=== PATIENT | male | born 1955 | race Caucasian/White ===

== ENCOUNTER 2019-08-28 12:22 | Outpatient (CLI) | payer BC, SELFPAY ==
--- NOTE | 2019-08-28 12:39 | ECG_ITS ---
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 EKG showed normal sinus rhythm with frequent PVCs, right axis deviation with mild ST depression. The patient exercised for 4 minutes 10 seconds on a standard Arnulfo protocol. Patient attained a maximum heart rate of 115 beats per minute(73 % of the maximum predicted heart rate) with a blood pressure at the peak exercise of 212/72 mm Hg and oxygen saturation 95%. The EKG at the peak exercise revealed this tachycardia with no significant ST changes. Study interpretation limited by baseline artifact. Patient did not have any chest pain or any significant shortness of breath with the exercise. Frequent PVCs were noted during exercise. Study was terminated due to fatigue and right hip pain. During the recovery phase, there were no new changes. Frequent PVCs in bigeminal pattern, PVC couplets and triplets were noted during recovery Blood pressure at the end of the recovery phase was 173/79 mm Hg with a heart rate of 71 beats per minute and oxygen saturation 98%. CONCLUSION: 1. Normal EKG response to submaximal stress on treadmill exercise patient reached 73% of maximum predicted heart rate. 2. No exercise-induced chest pain. Frequent PVCs noted at rest with frequent PVCs in bigeminal pattern, PVC couplet and triplet with peak exercise and recovery. 3. Decreased exercise tolerance, attained a maximum of 7 METs. Maximum VO2 of 24.5 mL/kg/min. 4. Baseline hypertension with hypertensive response to exercise. 5. Chemical stress testing is recommended. Electronically Signed On 08-30-2019 9:33:38 CDT by Kaitlin Brock M.D. [id number]
[2019-08-28 12:42] VITALS: BMI 35.9
[2019-08-28 13:29] VITALS: BP 132/74; PULSE 61
== END 2019-08-28 12:23 | disposition home or self-care (01) ==
PROVIDERS: PCP Nurse Practitioner; Visit Provider Internal Medicine Cardiovascular Disease
DX: I25.10 Atherosclerotic heart disease of native coronary artery without angina pectoris (principal)
CPT/HCPCS: 93017

== ENCOUNTER 2019-09-12 06:56 | Outpatient (CLI) | payer BC, SELFPAY ==
--- NOTE | 2019-09-12 07:19 | ECG_ITS ---
NAME OF STUDY: LEXISCAN SESTAMIBI STRESS TEST INDICATION: Chest Pain PROCEDURE: At the baseline, the blood pressure was 136/77 mmHg, oxygen saturation 97% with a heart rate of 50 bpm. The electrocardiogram showed sinus bradycardia, normal axis and nonspecific ST depression in lead II, III and aVF. The Lexiscan was infused over a period of 20 seconds. A total of 0.4 milligrams of Lexiscan was infused. The stress phase was continued for a total of 5 minutes. Heart rate at the end of the stress phase was 34 bpm, oxygen saturation 96% with a blood pressure of 102/76 mm Hg. The EKG at the peak infusion revealed junctional rhythm at 34 bpm with normal axis and nonspecific ST depression in lead II, III and aVF. No ischemic ST-T wave changes. Patient developed intraprocedural bradycardia, dizziness, diaphoresis and hypotension early in recovery with blood pressure dropping down to 64/39 mmHg and heart rate in 30's. Sestamibi was injected 20 seconds after the Lexiscan infusion. Blood pressure at the end of the recovery phase was 126/64 mmHg with a heart rate of 58 beats per minute. He received aminophylline 25 mg IV and 250 ml fluid bolus. CONCLUSION: 1. No significant EKG changes with LexiScan infusion. 2. No LexiScan induced chest pain. Junctional rhythm noted during stress. 3. Patient developed hypotension and junctional bradycardia during stress test. 4. Sestamibi/sestamibi perfusion scan pending; see separate report. Electronically Signed On 09-15-2019 14:03:54 CDT by Kaitlin Brock M.D. [id number]
--- NOTE | 2019-09-12 07:19 | NMCV_ITS ---
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 Images obtained in supine and prone position. SPECT RESULTS Technical Quality: Good Raw Data Analysis: Normal Image Corrections: No attenuation or motion correction applied Summed Stress Score: 5 Summed Rest Score: 3 Summed Difference Score: 3 PERFUSION FINDINGS Small size perfusion abnormality of mild severity of apical inferior and apical moran on rest images with ischemia noted in mid to apical inferolateral and apical inferior moran on stress images. FUNCTIONAL RESULTS (calculated via Gated SPECT) Stress Image LV EF (%): 44 Stress EDV (mL):117 TID: 0.92 Stress ESV (mL):65 FUNCTIONAL FINDINGS: The left ventricle is normal in size. Transient Ischemia Dilatation of 0.92. There is mildly reduced left ventricular systolic function. The left ventricular ejection fraction is reduced with a value of 44%. There is mild global hypokinesis. IMPRESSIONS 1. Small sized reversible perfusion abnormality of mid to apical inferolateral and apical inferior moran. This is suggestive of small area of ischemia in circumflex artery territory. 2. The left ventricular ejection fraction is reduced with a value of 44%. 3. There is mild global hypokinesis. 4. Electrocardiographic portion of the study will be reported separately. Kaitlin Brock MD Edited by: CV Manager Business Intelligence (Electronically Signed) Final Date: 15 September 2019 14:14 Amended: 16 September 2019 13:06 C
[2019-09-12 07:20] VITALS: BMI 36.6
[2019-09-12] MEDS: regadenoson 0.4 Mg/5 ml Syringe IVP (08:54)
[2019-09-12 08:56] VITALS: BP 164/87; PULSE 50
[2019-09-12] MEDS: aminophylline 25 mg/mL SDV 10 mL IVP (08:56)
[2019-09-12] MEDS: sodium chloride 0.9% 250 ML IV (09:15)
== END 2019-09-12 06:57 | disposition home or self-care (01) ==
PROVIDERS: PCP Nurse Practitioner; Visit Provider Internal Medicine Cardiovascular Disease
DX: R07.9 Chest pain, unspecified (principal); I25.10 Atherosclerotic heart disease of native coronary artery without angina pectoris
CPT/HCPCS: 78452; 93017; 96374; A9500; J0280; J2785; J7050

== ENCOUNTER 2019-09-18 09:46 | Observation (INO) | payer BC, SELFPAY ==
[2019-09-17 10:55] VITALS: BMI 36.3
[2019-09-18] VITALS (41 sets, daily range): BP systolic 108–159; BP diastolic 68–87; PULSE 49–67; RESP 7–23; TEMP 36.2–36.8; O2SAT 94–100
--- NOTE | 2019-09-18 07:30 | XACV_ITS ---
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 Stress testing showed a small amount of ischemia. Recommended for coronary angiography. The left main coronary artery contains a 50% eccentric ostial stenosis. The LAD is occluded at its origin. Distal flow is via the RENÉ graft. The circumflex marginal branches are occluded. There is an AV groove branch which gives off 2 tiny marginals distally and left atrial recurrent branch. The more proximal marginals are occluded. The right coronary artery is severely diffusely diseased in its proximal portion and then is occluded in the midportion. Some collaterals are seen from the distal LAD upon injection of the RENÉ graft. Conclusions 50% left main stenosis. Occluded marginal branches with patent AV groove branch of the circumflex. Occluded right and occluded LAD. Saphenous vein graft to the circumflex and right coronary artery is occluded. Left internal mammary artery patent to the LAD. Surprisingly close to normal left ventricular function. Recommendations Medical treatment. Ventriculography Ejection Fraction: 45.0 % Pressures Phase:Rest AO : 105 mmHg / 56 mmHg ( 78 mmHg ) @ 3:51:00 AM 116 mmHg / 51 mmHg ( 81 mmHg ) @ 4:07:00 AM 123 mmHg / 48 mmHg ( 82 mmHg ) @ 4:07:00 AM LV : 113 mmHg / 2 mmHg / @ 4:06:00 AM 119 mmHg / 2 mmHg / @ 4:06:00 AM 119 mmHg / 1 mmHg / @ 4:07:00 AM Valves Phase:DefaultPhase AV : 3.0 mmHg @ 9:13:35 AM AV Mean Gradient: 11.0 mmHg @ 9:13:35 AM Clinical Evaluation EBL: 5mL-10mL Procedural Details Pre-Procedure Time Out. Identified patient by full name and date of as verbalized by the patient/guarantor. Does the consent match the physician's order: Yes. Accurate & Complete Informed Consent: Yes. Inpatient/Outpatient History & Physical on Chart: Yes. If H&P is completed, is and addenduem needed: No. Relevant Radiology Images available: Yes. Pre-op teaching completed and patient verbalized understanding. The risks, benefits, and alternatives of sedation and/or procedure were discussed by physician. The patient agrees to continue. Procedure started. 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 Chest Pain Symptom Assessment: Non-anginal Chest Pain. Cardiovascular Instability: No. Correct patient, site and procedure confirmed by cath team. Current diagnosis: Stable known CAD. PERRLA. Strong, equal hand program management specialist bilaterally. Lungs clear x 5 lobes. IV Site on Arrival: 18 gauge in the left anticubital. IV Fluids: 0.9% NaCl at KVO. 0 mL infused prior to labor crew supervisor. Pre Procedural Pulses: bilateral dorsalis pedis was 1+. Pre Procedural Pulses: bilateral posterior tibial was 1+. Pre Procedural Pulses: bilateral radial was 2+. Oxygen started at 2liters/min via nasal canula. bilateral groins was prepped with chloroprep then draped in the usual sterile fashion. Physician notified. Baseline sample Acquired. HR: 66 BPM. Patient's family unavailable due to current Covid-19 restrictions. Physician arrived. Equipment: 6F - Femoral. Cardiac Cath Pack. ACIST Manifold Kit Model BT 2000. Heparinized Saline (2 units/mL), 1000 mL bag. Physician scrubbed in. Immediate Pre-Procedure Time Out. Correct Patient: Yes; Correct Procedure: Yes; Correct Site: Yes; Correct Patient Position: Yes; Correct Supplies: Yes; Dried Flammable Prep: Yes; Blood Products Available: N/A. Lidocaine 1% infiltrated to the right groin. Arterial access obtained. A 6 st helenian JL4 catheter in over wire. Multiple views taken of left coronary artery. A 6 st helenian JR4 catheter in over wire. Multiple views taken of right coronary artery. Catheter redirected to the SVG to the CX. SVG to Circumflex occluded. Catheter redirected to the SVG to the RCA. SVG to RCA occluded. Catheter redirected to the SINGH. Exchange glidewire in. Catheter out over the exchange glidewire. A 6 st helenian IM catheter in over the glidewire. Exchange glidewire out. SINGH to LAD visualized. Catheter out over the exchange glidewire. A 6 st helenian JR4 catheter in over the exchange glidewire. Exchange glidewire out. SINGH to LAD visualized. Catheter out over the exchange glidewire. A 6 st helenian Angled Pig catheter in over the exchange glidewire. EDP Sample taken: LV 113/2,22; HR: 69 BPM; SpO2: 99%. LV gram performed in LINDQUIST @ 10 mL/second for a total of 30 mL. EDP Sample taken: LV 119/2,23; HR: 58 BPM; SpO2: 99%. Pullback taken: LV 119/1,22; AO 116/51(81); Mean: 11mmHg, Peak to Peak: 3mmHg, SEP: 13sec/min; HR: 60 BPM; SpO2: 99%. Patient's family updated per Dr. Gonzales. Catheter out. Physician scrubbed out. Sheath(s) sutured into position with 2-0 silk and sterile 4x4's and Op-site applied over the site. No oozing or signs and symptoms of hematoma noted. Post Procedure: Pulses reassessed and unchanged. PERRLA. Strong, equal hand program management specialist bilaterally. No VTE prophylaxis required. Medication's Wasted: Lidocaine 1% = 10 mL. Medication's Wasted: Heparin = 1000 units. Total IV fluids: 42 mL. A Suture was successful obtaining hemostatsis at the Right Femoral artery insertion site. Post-op diagnosis: CAD. Complications: none. Estimated blood loss: 5mL-10mL. Procedure completed. Patient transferred by bed to 1st floor. Vital chart was stopped. Site: Right Femoral artery Sheath Size: 6 Fr Hemostasis Method: Suture Hemostasis Success: Successful Procedure Medications Start: 8:35 AM Stop: 8:35 AM Medication: Versed Amount: 1 mg Route: I.V. Start: 8:36 AM Stop: 8:36 AM Medication: Fentanyl Amount: 50 mcg Route: I.V. Start: 8:50 AM Stop: 8:50 AM Medication: Versed Amount: 1 mg Route: I.V. Start: 8:51 AM Stop: 8:51 AM Medication: Fentanyl Amount: 50 mcg Route: I.V. Start: 8:53 AM Stop: 8:53 AM Medication: Versed Amount: 1 mg Route: I.V. Start: 8:53 AM Stop: 8:53 AM Medication: Fentanyl Amount: 50 mcg Route: I.V. I, the attending physician, have reviewed and verified all procedure medications. Yes, all medications given per verbal order History/Risk Factors Hypertension: Yes Dyslipidemia: Yes Peripheral Arterial Disease (PAD): No Myocardial Infarction (WI): No Obesity: Yes Renal Disease: No Tobacco Use: Current/Recent(w/in 1 year) Prior Interventions PCI: Yes CABG: Yes Valve Surgery: No Date of PCI: 10/02/2003 Report Signatures Finalized by:Dr. Stuart Gonzales MD on 09/18/2019 9:51:35 AM
--- NOTE | 2019-09-18 08:07 | PM.HP ---
Providers/Chief Complaint Admitting Physician: Christian Primary Care Provider: Shanda Arellano APN Chief Complaint: Chest pain, abnormal stress test History of Present Illness Moncho Medina is a 64 year old male who is being placed in today for purposes of elective coronary angiography and graft angiography. He has a history of hypertension, dyslipidemia, GERD and tobacco abuse. He saw Dr. Brock in the office a little over a month ago. 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 The stress test was done and included a perfusion study. This revealed a small reversible perfusion abnormality in the mid to apical inferolateral and apical inferior moran. The ejection fraction is 44%. 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 We do not have a bypass report. The bypass surgery was done in October 1995 at [facility] in [place]. No report is available. The patient does not know where the grafts are nor does he have any information with him that would suggest the position of the grafts. Review of Systems General: Reports: 10 or more systems reviewed and unremarkable except in HPI and below Medications/Allergies Home Medications Medication Instructions Recorded Confirmed Last Taken Type carvedilol 25 mg tablet 25 mg PO .1 TAB AM, 1/2 TAB PM #45 07/29/19 Unknown Rx tab amlodipine 10 mg tablet 10 mg PO DAILY #5 tab 08/16/19 08/16/19 Unknown Rx aspirin 81 mg tablet,delayed 81 mg PO DAILY 08/16/19 09/17/19 Unknown History release atorvastatin 80 mg tablet 80 mg PO DAILY 08/16/19 08/16/19 Unknown History clopidogrel 75 mg tablet 75 mg PO DAILY 08/16/19 08/16/19 Unknown History nitroglycerin 0.4 mg sublingual 0.4 mg SUBLINGUAL Q5M PRN 08/16/19 09/17/19 Unknown History tablet Allergies Allergy/AdvReac Type Severity Reaction Status Date / Time amoxicillin [From Augmentin] Allergy ALGY-Rash Verified 07/29/19 10:58 clavulanic acid Allergy ALGY-Rash Verified 07/29/19 10:58 [From Augmentin] PFSH Acute PFSH: Medical History (Updated 09/18/19 @ 08:12 by Stuart Gonzales MD) Abnormal stress test Coronary artery disease GERD (gastroesophageal reflux disease) HTN (hypertension) Hyperlipidemia TIA (transient ischemic attack) Tobacco abuse Surgical History (Updated 09/18/19 @ 08:12 by Stuart Gonzales MD) S/P coronary artery stent placement Status post aorto-coronary artery bypass graft Family History (Updated 08/16/19 @ 10:47 by Valeria Bosch, RN) Other Diabetes Stroke Social History (Updated 08/16/19 @ 10:48 by Valeria Bosch, RN) Smoking and tobacco status: former smoker Quit status (tobacco): has quit using tobacco Year quit tobacco: 2019 Alcohol intake: current Alcohol intake frequency: other Vitals/I&O/Wt Weight last 48 hrs Weight 268 lb Physical Exam Narrative: EXAM NARRATIVE: GENERAL: Comfortable at rest HEENT: Exam within normal limits. NECK: Supple without jugular vein distention. The carotid upstroke is normal without bruits. BACK: Exam normal. LUNGS: Clear. HEART: Regular rate and rhythm. ABDOMEN: Benign without organomegaly or tenderness. EXTREMITIES: No edema. NEUROLOGIC: Exam normal. SKIN: Unremarkable. A&P Assessment and plan (1) Status post aorto-coronary artery bypass graft: Status: Acute (2) S/P coronary artery stent placement: Status: Acute (3) Tobacco abuse: Status: Acute (4) TIA (transient ischemic attack): Status: Acute (5) Hyperlipidemia: Status: Acute (6) HTN (hypertension): Status: Acute (7) GERD (gastroesophageal reflux disease): Status: Acute (8) Coronary artery disease: Status: Acute (9) Abnormal stress test: Status: Acute Additional A&P Information Coronary angiography and graft angiography. We will simply have to look for the graft since we do not have a bypass surgery report and have no other information other than the patient states he had 3 bypasses performed. Attestations Medical Necessity Statement*: Outpatient in a bed Coding Level of Care Code New Pt Acute Senior It Engineer for Chg Fwd Patient Type New History Detailed Exam Detailed Medical Decision Making Moderate Complexity Diagnoses Status post aorto-coronary artery bypass graft Z95.1 S/P coronary artery stent placement Z95.5 Tobacco abuse Z72.0 TIA (transient ischemic attack) G45.9 Hyperlipidemia E78.5 HTN (hypertension) I10 GERD (gastroesophageal reflux disease) K21.9 Coronary artery disease I25.10 Abnormal stress test R94.39
[2019-09-18] MEDS: diphenhydrAMINE 50 mg Capsule PO (08:26)
[2019-09-18 08:31] LABS: Basophils % 0.4 %; Eosinophils # 0.4 10^3/uL (0.0-0.8); Eosinophils % 5.1 %; Hematocrit 41.9 % (42.0-52.0); Hemoglobin 14.1 g/dL (11.7-16.6); Lymphocytes # 1.6 10^3/uL (0.8-4.8); Lymphocytes % 22.7 %; Mean Corpuscular HGB Conc 33.7 g/dL (30.0-36.0); Mean Corpuscular Hemoglobin 30.3 pg (28.0-34.0); Mean Corpuscular Volume 89.9 fL (80-94); Mean Platelet Volume 9.4 fL (7.4-10.4); Monocytes # 0.5 10^3/uL (0.2-0.9); Monocytes % 6.7 %; Neutrophils # 4.5 10^3/uL (1.8-7.7); Neutrophils % 64.8 %; Nucleated Red Blood Cells % 0 %; Platelet Count 143 10^3/cmm (130-400); Red Blood Count 4.66 10^6/uL (4.1-5.3); White Blood Count 6.9 10^3/uL (4.0-10.0)
[2019-09-18 08:44] LABS: Anion Gap 12.1 (5-19); Blood Urea Nitrogen 10 mg/dL (8-23); Calcium 8.7 mg/dL (8.5-10.5); Carbon Dioxide 28 mmol/L (22-29); Chloride 104 mmol/L (98-107); Glomerular Filtration Rate 113.9 mL/min (90-130); Glucose 132 mg/dL (65-115); Osmolality Calculated 288 mOsm/kg (285-295); Potassium 4.1 mmol/L (3.5-5.1); Sodium 140 mmol/L (136-145)
[2019-09-18] MEDS: aspirin 81 mg EC Tablet PO (14:06)
[2019-09-18] MEDS: atorvastatin 40 mg Tablet 80 MG PO (14:07)
[2019-09-18] MEDS: amlodipine 10 mg Tablet PO (14:07)
--- NOTE | 2019-09-18 18:54 | PC.NURSE ---
PATIENT GIVEN DISCHARGE INSTRUCTIONS AND VERBALIZED UNDERSTANDING ; VSS ; RIGHT GROIN DRESSING C/D/I ; DISTAL PULSES PRESENT ; IV REMOVED AND PRESSURE DRESSING APPLIED WITH NO BLEEDING NOTED ; PATIENT TO EXIT VIA WHEELCHAIR TO POV WITH NO ISSUES
== END 2019-09-18 18:56 | disposition home or self-care (01) ==
LOC: CSU 09:46
PROVIDERS: Admitting Provider Internal Medicine Cardiovascular Disease; PCP Nurse Practitioner; Visit Provider Internal Medicine Cardiovascular Disease
DX: R94.39 Abnormal result of other cardiovascular function study (principal); Z95.1 Presence of aortocoronary bypass graft; Z95.5 Presence of coronary angioplasty implant and graft; F17.210 Nicotine dependence, cigarettes, uncomplicated; G45.9 Transient cerebral ischemic attack, unspecified; E78.5 Hyperlipidemia, unspecified; I10 Essential (primary) hypertension; K21.9 Gastro-esophageal reflux disease without esophagitis; I25.10 Atherosclerotic heart disease of native coronary artery without angina pectoris; Z79.82 Long term (current) use of aspirin; Z86.73 Personal history of transient ischemic attack (TIA), and cerebral infarction without residual deficits
CPT/HCPCS: 12345; 36415; 80048; 85025; 93459; C1769; C1887; C1894; G0378; J1644; J2001; J2250; J3010; J7030; Q0163; Q9967

== ENCOUNTER → 2019-09-25 10:05 | Outpatient (BNVA) | payer BC, SELFPAY | PROVIDERS: PCP Nurse Practitioner; Visit Provider Nurse Practitioner Family | DX: I25.810 Atherosclerosis of coronary artery bypass graft(s) without angina pectoris (principal); Z09 Encounter for follow-up examination after completed treatment for conditions other than malignant neoplasm; Z87.891 Personal history of nicotine dependence | CPT/HCPCS: 80048 ==

== ENCOUNTER 2020-09-17 09:41 | Outpatient (CLI) | payer BC, SELFPAY ==
[2020-09-17 10:37] VITALS: BMI 35.2
--- NOTE | 2020-09-17 10:37 | NMCV_ITS ---
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 Images obtained in supine and prone position. SPECT RESULTS Technical Quality: Excellent Raw Data Analysis: Normal Image Corrections: No attenuation or motion correction applied Summed Stress Score: 3 Summed Rest Score: 3 Summed Difference Score: 2 PERFUSION FINDINGS Small size perfusion abnormality of mild severity of apical inferior, mid inferolateral, apical lateral and apical moran on rest images with mild reversibility in mid inferolateral wall. FUNCTIONAL RESULTS (calculated via Gated SPECT) Stress Image LV EF (%): 51 Stress EDV (mL):122 TID: 1.01 Stress ESV (mL):60 FUNCTIONAL FINDINGS: The left ventricle is normal in size. Transient Ischemia Dilatation of 1. The left ventricular ejection fraction is mildly reduced with a value of 51%. There is no regional wall motion abnormality. Increased end-diastolic volume. IMPRESSIONS 1. Small sized perfusion abnormality of mild severity of apical inferior, mid inferolateral, apical lateral and apical moran with mild reversibility in mid inferolateral wall (SDS=2). 2. This represents old myocardial infarction in circumflex artery territory with mild pj-infarct ischemia. 3. The left ventricular ejection fraction is mildly reduced with a value of 51%. 4. There is no regional wall motion abnormality. 5. No significant change when compared to study dated 09/12/2019. Kaitlin Brock MD (Electronically Signed) Final Date: 17 September 2020 18:22 S
--- NOTE | 2020-09-17 10:37 | ECG_ITS ---
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 Interpretive Statements NAME OF STUDY: LEXISCAN SESTAMIBI STRESS TEST INDICATION: Coronary Artery Disease PROCEDURE: At the baseline, the blood pressure was 124/59 mmHg with a heart rate of 55 bpm. The electrocardiogram showed sinus bradycardia with frequent isolated PVC. Rightward axis. Nonspecific ST depression and T wave changes. The Lexiscan was infused over a period of 20 seconds. A total of 0.4 milligrams of Lexiscan was infused. The stress phase was continued for a total of 5 minutes. Heart rate at the end of the stress phase was 70 bpm with a blood pressure of 111/59 mmHg. The EKG at the peak infusion revealed sinus rhythm with no significant ST-T wave changes. Sestamibi was injected 20 seconds after the Lexiscan infusion. Blood pressure at the end of the recovery phase was 119/67 mmHg with a heart rate of 71 beats per minute. CONCLUSION: 1. No significant EKG changes with the LexiScan infusion 2. No LexiScan induced chest pain or cardiac arrhythmia. 3. Normal blood pressure and heart rate response. 4. Sestamibi/sestamibi perfusion scan pending; see separate report. Electronically Signed On 09-17-2020 18:13:43 CDT by Kaitlin Brock M.D. [email or web address]
--- NOTE | 2020-09-17 10:39 | PC.NURSE ---
Wrong test scheduled Orders verified and state Dobutamine Stress Echo . Scheduling has scheduled pt for Lexiscan Mibi. Contacted US and states they did not have pt on their schedule and did not have time to fit it in today. Pt had also not held Coreg x2 days like order stated. Dr Brock notified of this and states it will be fine to switch pt to Lexiscan Mibi. Pt updated and agreed with plan.
[2020-09-17] MEDS: regadenoson 0.4 Mg/5 ml Syringe IVP (13:10)
[2020-09-17 13:17] VITALS: BP 119/67; PULSE 67
== END 2020-09-17 09:42 | disposition home or self-care (01) ==
LOC: CDL 09:43
PROVIDERS: PCP Nurse Practitioner; Visit Provider Internal Medicine Cardiovascular Disease
DX: R07.9 Chest pain, unspecified (principal); I25.10 Atherosclerotic heart disease of native coronary artery without angina pectoris; I25.2 Old myocardial infarction
CPT/HCPCS: 78452; 93017; A9500; J2785

== ENCOUNTER → 2021-04-08 14:32 | Outpatient (BNVA) | payer MEDICARE, SELFPAY | PROVIDERS: PCP Nurse Practitioner; Referring Provider Nurse Practitioner; Visit Provider Urology | DX: R97.20 Elevated prostate specific antigen [PSA] (principal) | CPT/HCPCS: 84153 ==

== ENCOUNTER → 2021-07-06 07:39 | Outpatient (BNVA) | payer OTHER, SELFPAY | PROVIDERS: PCP Nurse Practitioner; Visit Provider Urology | DX: R97.20 Elevated prostate specific antigen [PSA] (principal) | CPT/HCPCS: 81003; 84153 ==

== ENCOUNTER 2021-11-04 06:58 | Outpatient (CLI) | payer OTHER, SELFPAY ==
[2021-11-04 08:15] LABS: Prostate Specific AG Urology 10.59 ng/mL (0-4)
== END 2021-11-04 06:59 | disposition home or self-care (01) ==
LOC: LAB 07:03
PROVIDERS: PCP Nurse Practitioner Family; Visit Provider Urology
DX: R97.20 Elevated prostate specific antigen [PSA] (principal)
CPT/HCPCS: 36415; 84153

== ENCOUNTER 2022-02-23 16:43 | Outpatient (CLI) | payer OTHER, SELFPAY ==
--- NOTE | 2022-02-23 16:54 | XRR_ITS ---
PROCEDURE INFORMATION: Exam: XR Chest Exam date and time: 02/23/2022 5:07 PM Age: 67 years old Clinical indication: Cough; Prior surgery; Surgery type: Open heart, stent; Patient HX: Pneumonia TECHNIQUE: Imaging protocol: Radiologic exam of the chest. Views: 2 views. COMPARISON: No relevant prior studies available. FINDINGS: Lungs: No consolidation. Pleural spaces: No pleural effusion. No pneumothorax. Heart/Mediastinum: Large hiatal hernia noted. No cardiomegaly. Bones/joints: Sternotomy wires noted. Visualized osseous structures are intact. XR/XR chest 2V* [id number] IMPRESSION: No acute findings.
== END 2022-02-23 16:44 | disposition home or self-care (01) ==
LOC: RAD 16:47
PROVIDERS: PCP Nurse Practitioner Family; Visit Provider Nurse Practitioner Family
DX: R05.9 Cough, unspecified (principal)
CPT/HCPCS: 71046

== ENCOUNTER 2022-05-13 11:07 | Outpatient (CLI) | payer OTHER, SELFPAY ==
--- NOTE | 2022-05-13 11:25 | CT_ITS ---
WS: [id number] LDCT LUNG CANCER SCREENING TECHNIQUE: Noncontrast CT of the chest with coronal and sagittal reformatted images. CLINICAL INFORMATION: HX OF TOBACCO USE/NICOTINE DEPENDENCE,CIGARETTES COMPARISON: None. DLP: 82.72 mGy.cm DIvol: Mean CTDIvol: 1.60 (mGy) All CT scans at [facility] use at least one of these dose optimization techniques: automat ed exposure control; mA and/or kV adjustment per patient size (includes targeted exams where dose is matched to clinical indication); or iterative reconstruction. FINDINGS: Mild chronic emphysematous changes. Subsegmental atelectasis LEFT lower lobe. No suspicious pulmonary parenchymal abnormalities. A few calcified granulomas. Sternotomy with CABG. Normal caliber thoracic aorta. Aortic calcification. No mediastinal or hilar ly mphadenopathy. Calcified hilar nodes. No axillary lymphadenopathy. Adrenal glands are normal. Fatty atrophy of the pancreas. RIGHT renal cyst measuring 4.3 cm. Large esophageal hiatal hernia with intrathoracic stomach. Air-fluid level in the intrathoracic herni a. Mild thoracic kyphosis. Anterior hypertrophic changes thoracic spine. CT/CT lung screening 66099 IMPRESSION: Large esophageal hiatal hernia with complete intrathoracic stomach. LUNG-RADS: 2S-Benign Appearance or Behavior with Significant Findings FOLLOW UP: 12 Month: Continue annual screening with LDCT
== END 2022-05-13 11:08 | disposition home or self-care (01) ==
PROVIDERS: PCP Nurse Practitioner Family; Visit Provider Nurse Practitioner Family
DX: Z12.2 Encounter for screening for malignant neoplasm of respiratory organs (principal); Z87.891 Personal history of nicotine dependence
CPT/HCPCS: 71271

== ENCOUNTER 2022-11-01 06:00 | Outpatient (RCR) | payer OTHER, SELFPAY | END 2022-12-01 23:59 | disposition home or self-care (01) | LOC: SPT 06:00 | PROVIDERS: Visit Provider Surgery Trauma Surgery | DX: C61 Malignant neoplasm of prostate (principal) | CPT/HCPCS: 97110; 97161; 97530 ==

== ENCOUNTER 2022-12-02 06:00 | Outpatient (RCR) | payer OTHER, SELFPAY | END 2022-12-31 23:59 | disposition home or self-care (01) | LOC: SPT 06:00 | PROVIDERS: Visit Provider Surgery Trauma Surgery | DX: C61 Malignant neoplasm of prostate (principal) | CPT/HCPCS: 97110; 97140; 97530 ==

== ENCOUNTER 2022-12-26 09:12 | Observation (INO) | payer OTHER, SELFPAY ==
[2022-12-26] VITALS (67 sets, daily range): BP systolic 74–142; BP diastolic 47–83; PULSE 48–77; RESP 12–34; TEMP 36.3–36.9; O2SAT 90–97; BMI 36.6
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
--- NOTE | 2022-12-26 09:53 | XR_ITS ---
WS: [id number] PORTABLE CHEST HISTORY: dyspnea/cough COMPARISON: 02/23/2022 Hyperexpanded lungs. Mild hazy attenuation. No lobar collapse. Partial obscuration of the RIGHT lower lobe and the diaphragm due to a large hiatal hernia. Small effusion on the LEFT cannot be excluded. Cardiac size: Normal. Mediastinum/Aorta: Mild mediastinal widening. Ectatic thoracic aorta. Prior median sternotomy. No osseous abnormality seen. IMPRESSION: 1. Mild atherosclerosis aorta. 2. Large hiatal hernia obscuring the LEFT lower lobe and diaphragm. 3. Chronic emphysema.
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
--- NOTE | 2022-12-26 09:56 | ECG_ITS ---
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 Measurements Intervals [place] Rate: 48 P: 44 DE: 172 QRS: 61 QRSD: 114 T: 22 QT: 423 QTc: 379 Interpretive Statements SINUS BRADYCARDIA MODERATE INTRAVENTRICULAR CONDUCTION DELAY [110+ ms QRS DURATION] NONSPECIFIC T-WAVE ABNORMALITY No previous ECG available for comparison Electronically Signed On 12-26-2022 16:15:33 CDT by Surinder Tejada M.D. [id number] f
[2022-12-26 10:18] LABS: Basophils % 0.2 %; Eosinophils # 0.1 10^3/uL (0.0-0.8); Eosinophils % 0.4 %; Hematocrit 50.1 % (37-53); Lymphocytes # 2.3 10^3/uL (0.8-4.8); Lymphocytes % 10.9 %; Mean Corpuscular HGB Conc 32.9 g/dL (30-55); Mean Corpuscular Hemoglobin 29.3 pg (27-33); Mean Corpuscular Volume 88.8 fl (82-101); Mean Platelet Volume 9.3 fL (7.4-10.4); Monocytes # 1.5 10^3/uL (0.2-0.9); Monocytes % 7.4 %; Neutrophils # 16.33 10^3/uL (1.8-7.7); Neutrophils % 79.4 %; Nucleated Red Blood Cells % 0 %; Platelet Count 192 10^3/cmm (157-399); Red Blood Count 5.64 10^6/uL (3.85-5.65); Red Cell Distribution Width 13.6 % (12.1-15.1); White Blood Count 20.58 10^3/uL (3.29-11.43)
[2022-12-26 10:37] LABS: Alanine Aminotransferase 52 U/L (0-41); Alkaline Phosphatase 119 U/L (40-130); Anion Gap 13.6 (5-19); Aspartate Amino Transferase 39 U/L (0-40); Blood Urea Nitrogen 27 mg/dL (8-23); Calcium 9.5 mg/dL (8.5-10.5); Carbon Dioxide 29 mmol/L (22-29); Chloride 100 mmol/L (98-107); Globulin 3.3 g/dL (1.3-4.6); Glucose 127 mg/dL (65-115); Lipase 32 U/L (13-60); Osmolality Calculated 295 mOsm/kg (285-295); Potassium 3.6 mmol/L (3.5-5.1); Sodium 139 mmol/L (136-145); Total Bilirubin 0.7 mg/dL (0.15-1.2); Total Protein 7.3 g/dL (6.6-8.7)
[2022-12-26 10:41] LABS: Troponin(5th) Baseline 107 ng/L (0-15)
[2022-12-26] MEDS: iohexol 350 mg/mL 500 mL Btl (per mL) IV (11:30)
--- NOTE | 2022-12-26 11:54 | ECG_ITS ---
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 Measurements Intervals [place] Rate: 54 P: 52 OK: 179 QRS: 67 QRSD: 105 T: 9 QT: 418 QTc: 400 Interpretive Statements SINUS BRADYCARDIA NONSPECIFIC T-WAVE ABNORMALITY No previous ECG available for comparison Electronically Signed On 12-26-2022 16:18:10 CDT by Surinder Tejada M.D. [email or web address] Payment [email or web address] Services ([id number]
[2022-12-26 12:37] LABS: Troponin 5 2HR 89.49 ng/L (0-15)
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
--- NOTE | 2022-12-26 14:12 | USR_ITS ---
PROCEDURE INFORMATION: Exam: US Duplex Bilateral Extracranial Arteries; Complete; Carotid Arteries Exam date and time: 12/26/2022 5:23 PM Age: 67 years old Clinical indication: Syncope and collapse TECHNIQUE: Imaging protocol: Real-time duplex ultrasound scan of the bilateral extracranial arteries combining cisneros scale, color Doppler and spectral waveform analysis with image documentation. Complete exam. Exam focused on the carotid arteries. COMPARISON: CT cervical spin wo con* [id number] 12/26/2022 11:21 AM FINDINGS: Right common carotid artery: Unremarkable. No occlusion or stenosis. Waveforms are normal. Right internal carotid artery: Unremarkable. No occlusion or stenosis. Waveforms are normal. Right ICA/CCA ratio: 2.0. Within normal limits. Right external carotid artery: No stenosis in the origin. Right vertebral artery: Unremarkable. Antegrade flow. Left common carotid artery: Unremarkable. No occlusion or stenosis. Waveforms are normal. Left internal carotid artery: Unremarkable. No occlusion or stenosis. Waveforms are normal. Left ICA/CCA ratio: 0.8. Within normal limits. Left external carotid artery: No stenosis in the origin. Left vertebral artery: Unremarkable. Antegrade flow. US/CV carotid duplex BI* [id number] IMPRESSION: No carotid arterial stenosis. REFERENCES: SRU CRITERIA. The degree of internal carotid artery stenosis is based on criteria defined by the Society of Radiologists in Ultrasound (SRU). Normal is no stenosis. Mild is less than 50% stenosis. Moderate is 50-69% stenosis. Severe is greater than 69% stenosis to near occlusion. Near occlusion is a markedly narrowed lumen. Total occlusion is no detectable patent lumen.
--- NOTE | 2022-12-26 14:12 | USCV_ITS ---
Moncho Medina Age: 67 Gender: M : 1955 Exam Date: 12/26/2022 20:24 Ordering Phys: Thais Torres MD Technologist: JACQUES Exam Location: [facility] [place] troponin BP: 133 / 76 HR: 64 Rhythm: Sinus Technical Quality: Adequate with OPTISON MEASUREMENTS (Male / Female) Normal Values 2D ECHO LV Diastolic Diameter PLAX 4.5 cm 4.2 - 5.9 / 3.9 - 5.3 cm LV Systolic Diameter PLAX 2.8 cm IVS Diastolic Thickness 1.2 cm 0.6 - 1.0 / 0.6 - 0.9 cm IVS Systolic Thickness 1.8 cm LVPW Diastolic Thickness 1.3 cm 0.6 - 1.0 / 0.6 - 0.9 cm LVPW Systolic Thickness 1.6 cm LVOT Diameter 2.3 cm LV Ejection Fraction 2D Teich 67.9 % LV Ejection Fraction MOD 2C 57.8 % LV Ejection Fraction 2C AL 57.4 % LA Diameter 4.4 cm LA Width 4.1 cm LA Height 5.0 cm RA Width 3.5 cm RA Height 4.5 cm Aorta at Sinotubular Diameter 3.2 cm IVC Diameter 1.7 cm M-MODE Aortic Annulus Diameter 3.8 cm LA Ao Ratio MM 1.2 MV E Point Septal Separation 0.5 cm DOPPLER AV Peak Velocity 103.0 cm/s LVOT Peak Velocity 65.0 cm/s AV Area Cont Eq vti 2.7 cm squared AV Area Cont Eq pk 2.6 cm squared MV Peak Velocity 94.0 cm/s MV Area PHT 2.0 cm squared Mitral E to A Ratio 0.7 MV E' Velocity 34.5 cm/s Mitral E to MV E' Ratio 8.2 Mitral E to LV E' Lateral Ratio 7.9 Mitral E to LV E' Septal Ratio 8.7 TR Peak Velocity 240.0 cm/s TR Peak Gradient 23.0 mmHg TV Peak E Velocity 54.0 cm/s Right Atrial Pressure 5.0 mmHg Pulmonary Artery Systolic Pressu 28.0 mmHg PV Peak Velocity 92.0 cm/s RV Acceleration Time 0.2 s RV Ejection Time 0.3 s RV AcT/ET 0.4 FINDINGS Left Ventricle Normal left ventricular size and systolic function, EF 63 %. No regional wall motion abnormalities. Grade I/IV diastolic dysfunction (abnormal relaxation filling pattern), normal to mildly elevated filling pressures. Right Ventricle The right ventricle is normal in size and function. Right Atrium The right atrium is normal in size. Left Atrium The left atrium is normal in size. Mitral Valve No gross abnormalities noted Aortic Valve No gross abnormalities noted Tricuspid Valve Tricuspid valve not well visualized. Pulmonic Valve Mild pulmonary valve regurgitation. Pericardium Normal pericardium without effusion. Aorta Normal aortic annulus size. IVC Inferior vena cava not visualized. CONCLUSIONS Normal left ventricular size and systolic function, EF 63 %. No regional wall motion abnormalities. Grade I/IV diastolic dysfunction (abnormal relaxation filling pattern), normal to mildly elevated filling pressures. Mild pulmonary valve regurgitation. No significant stenotic or regurgitant lesions. There is no pericardial effusion. (Echo contrast - Optison was used to delineate the endocardium and to estimate the LV ejection fraction) No similar previous studies are available for comparison Dr Roque Bowen MD [facility] (Electronically Signed) Final Date: 27 December 2022 10:16 S
[2022-12-26 14:14] LABS: Urine Color Yellow (Yellow)
[2022-12-26 14:15] LABS: Add Urine Microscopic? YES; Bacteria Urine TRACE /hpf; Bilirubin Urine Neg (Negative); Blood Urine Neg (Negative); Glucose Urine UA Norm (Normal); Ketones Urine Negative (Negative); Leukocyte Esterase Urine Negative (Negative); Nitrate Urine Negative (Negative); Protein Urine Trace (Negative); Squamous Epithelial Cell Urine 0-4 /hpf (0-5); Urine Appearance Clear (CLEAR); Urobilinogen Urine Norm (Negative); WBC Urine 0-4 /hpf (0-5); pH Urine 6.5 (5-7)
[2022-12-26 14:16] LABS: Add Urine Culture? No
[2022-12-26] MEDS: enoxaparin 40 mg/0.4 mL Syringe SUBCUT (15:21)
[2022-12-26] MEDS: sodium chlor 0.9% + KCl 20 mEq 20 MEQ/1,000 ML BAG 50 MEQ IV (15:21)
[2022-12-26 15:23] LABS: Procalcitonin 0.08 ng/mL (0-0.5)
--- NOTE | 2022-12-26 15:54 | ECG_ITS ---
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 Measurements Intervals [place] Rate: 63 P: 66 ID: [id number] QRS: 63 QRSD: 112 T: 34 QT: 391 QTc: 400 Interpretive Statements SINUS RHYTHM MODERATE INTRAVENTRICULAR CONDUCTION DELAY [110+ ms QRS DURATION] NONSPECIFIC T-WAVE ABNORMALITY Compared to ECG 12/26/2022 11:52:50 Intraventricular conduction delay now present Sinus bradycardia no longer present T-wave abnormality still present Electronically Signed On 12-26-2022 16:17:38 CDT by Surinder Tejada M.D. [id number]
[2022-12-26 16:26] LABS: D Dimer 6.74 ug/mLFEU (0-0.59)
--- NOTE | 2022-12-26 17:13 | USR_ITS ---
PROCEDURE INFORMATION: Exam: US Duplex Lower Extremity Veins, Bilateral Exam date and time: 12/26/2022 5:45 PM Age: 67 years old Clinical indication: Screening exam; Stasis; Additional info: Elevated d dimer, syncope, recent covid infection TECHNIQUE: Imaging protocol: Real-time duplex ultrasound of the bilateral extremities with 2-D cisneros scale, color Doppler flow and spectral waveform analysis including responses to compression and other maneuvers (when performed) with image documentation. Complete exam focused on the lower extremity veins. COMPARISON: CT chest abdpel w/*[id number] 12/26/2022 11:26 AM FINDINGS: Right deep veins: Unremarkable. The common femoral, femoral, proximal profunda femoral and popliteal veins as well as the visualized deep veins of the lower leg are patent without thrombus. Normal Doppler waveforms. Normal compressibility and/or augmentation response. Left deep veins: Unremarkable. The common femoral, femoral, proximal profunda femoral and popliteal veins as well as the visualized deep veins of the lower leg are patent without thrombus. Normal Doppler waveforms. Normal compressibility and/or augmentation response. Superficial veins: Bilateral saphenofemoral junctions are patent without thrombus. Soft tissues: Unremarkable. US/[place] [id number] IMPRESSION: No evidence of deep vein thrombosis.
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
[2022-12-26 17:58] LABS: ABG PCO2 39.9 mmHg (35-45); ABG PH Result 7.47 (7.35-7.45); Alveolar-Arterial Oxygen Gradi 5.4 mmHg (5-10); Arterial Blood Gas Hematocrit 47.8 % (42-52); Base Excess ABG 4.5 mmol/L (-2.0-2.0); Blood Gas Allen Test Pos; Blood Gas Operator Identificat GD; Blood Gas Sample Site Radial, left; Blood Gas Sample Type Arterial; HCO3 ABG 28.7 mmol/L (22-26); HGB O2 Sat 91.2 % (95-100); Ionized Calcium Level - ABG 1.3 mmol/L (1.1-1.4); Methemoglobin 0.1 % (0.4-1.5); Oxygen Device ROOM AIR; Oxygen Saturation ABG 93.2; PO2 ABG 59.2 mmHg (80.0-100.0); Potassium Level - ABG 3.7 mmol/L (3.5-5.0); Total Hemoglobin 15.6 g/dL (14-18)
[2022-12-26] MEDS: docusate sodium 100 mg Capsule PO (18:15)
[2022-12-26] MEDS: enoxaparin 80 mg/0.8 mL Syringe SUBCUT (18:15)
--- NOTE | 2022-12-26 19:24 | ECG_ITS ---
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 Interpretive Statements NAME OF STUDY: LEXISCAN SESTAMIBI STRESS TEST INDICATION: Chest Pain PROCEDURE: At the baseline, the EKG revealed normal sinus rhythm with a sinus arrhythmia. The baseline heart was 71 bpm with a blood pressue of 107/65 mm of Hg Lexiscan was infused over a period of 20 seconds. A total of 0.4 milligrams of Lexiscan was infused. The stress phase was continued for a total of 5 minutes. Heart rate at the end of the stress phase was 71 bpm with a blood pressure 94/53 mm of Hg. The EKG at the peak infusion revealed no significant changes. Sestamibi was injected 20 seconds after the Lexiscan infusion. Heart rate at the end of the recovery phase was 70 bpm with a blood pressure of 101/57 mm of Hg. CONCLUSION: 1. No significant EKG changes with the LexiScan infusion 2. No LexiScan induced chest pain or cardiac arrhythmia 3. Normal blood pressure and heart rate response 4. Sestamibi/sestamibi perfusion scan pending; see separate report. Electronically Signed On 12-29-2022 23:35:52 CDT by Roque Bowen M.D. [email or web address]
[2022-12-26] MEDS: carvedilol 6.25 mg Tablet PO (20:05)
[2022-12-27] VITALS (176 sets, daily range): BP systolic 99–157; BP diastolic 52–85; PULSE 51–83; RESP 15–48; TEMP 36.5–37.2; O2SAT 72–96
[2022-12-27 04:16] LABS: Basophils % 0.2 %; Eosinophils # 0.3 10^3/uL (0.0-0.8); Eosinophils % 2.3 %; Hematocrit 44.5 % (37-53); Lymphocytes # 2.3 10^3/uL (0.8-4.8); Lymphocytes % 18.6 %; Mean Corpuscular HGB Conc 33.5 g/dL (30-55); Mean Corpuscular Hemoglobin 29.2 pg (27-33); Mean Corpuscular Volume 87.1 fl (82-101); Mean Platelet Volume 9.1 fL (7.4-10.4); Monocytes # 0.8 10^3/uL (0.2-0.9); Monocytes % 6.3 %; Neutrophils % 71.9 %; Nucleated Red Blood Cells % 0 %; Platelet Count 154 10^3/cmm (157-399); Red Blood Count 5.11 10^6/uL (3.85-5.65); Red Cell Distribution Width 13.4 % (12.1-15.1); White Blood Count 12.39 10^3/uL (3.29-11.43)
[2022-12-27 04:30] LABS: INR 1.11 (0.8-1.2)
[2022-12-27 04:31] LABS: Partial Thromboplastin Time 34.3 SECONDS (23.9-36.7)
[2022-12-27 04:35] LABS: Chol HDL Ratio 3.97 mg/dL (1.0-5.00); Cholesterol 119 mg/dL (0-200); HDL Cholesterol 30 mg/dL (60-100); LDL Cholesterol Calculated 65 mg/dL (50-129); LDL HDL Ratio 2.17 RATIO (0.00-3.22); Triglycerides 122 mg/dL (0-150)
[2022-12-27 04:37] LABS: Estmated Average Glucose 131; Hemoglobin A1C 6.2 % (4.0-6.0)
[2022-12-27 04:47] LABS: Blood Urea Nitrogen 28 mg/dL (8-23); Calcium 8.8 mg/dL (8.5-10.5); Carbon Dioxide 28 mmol/L (22-29); Chloride 103 mmol/L (98-107); Glomerular Filtration Rate 96.7 mL/min (90-130); Glucose 115 mg/dL (65-115); Magnesium 1.6 mg/dL (1.7-2.3); Osmolality Calculated 296 mOsm/kg (285-295); Phosphorus 3.7 mg/dL (2.5-4.5); Sodium 140 mmol/L (136-145); Thyroid Stimulating Hormone 1.03 uIU/mL (0.27-4.20)
[2022-12-27] MEDS: enoxaparin 120 mg/0.8 mL Syringe SUBCUT ×2 (05:43→17:25)
[2022-12-27] MEDS: perflutren protein-a microsphr 0.22 mg/mL SDV 3 mL IV (05:45)
[2022-12-27] MEDS: regadenoson 0.4 Mg/5 ml Syringe IVP (07:18)
[2022-12-27] MEDS: aminophylline 25 mg/mL SDV 10 mL IVP (07:28)
--- NOTE | 2022-12-27 08:00 | CT_ITS ---
WS: [id number] CT CHEST ANGIOGRAPHY WITH REFORMATS HISTORY: elevated d dimer, syncope, elevated trop TECHNIQUE: Contiguous axial images are obtained through the chest during arterial injection of intrav enous contrast. Images are reconstructed to evaluate the pulmonary arteries. MIP imaging also reviewe d. All CT scans at [facility] use at least one of these dose optimization techniques: automat ed exposure control; mA and/or kV adjustment per patient size (includes targeted exams where dose is matched to clinical indication); or iterative reconstruction. CONTRAST: Omnipaque 350; 100 mL IV. DLP: 523.08 mGy.cm COMPARISON: 12/26/2022 Suboptimal opacification of the pulmonary arteries. Centrally there is no pulmonary embolism. The opa cification becomes limited beyond the segmental branches. No filling defects are identified. There is no RIGHT heart strain. Normal size of the aorta. No pericardial or pleural effusions. Dependent changes and atelectasis at the lung bases are unchanged. No mass or nodule. No pneumothorax . No pulmonary contusion. Prior CABG. Small mediastinal and hilar lymph nodes. No soft tissue injury or hematoma. No rib fractures identified. Bridging osteophytes throughout the t horacic spine. No vertebral body fracture. No acute change in the upper abdomen. IMPRESSION: 1. No pulmonary embolism. 2. No rib fractures or spine fractures are identified. No soft tissue injury. 3. No pulmonary contusion or pneumothorax.
[2022-12-27] MEDS: iohexol 350 mg/mL 500 mL Btl (per mL) IV (08:28)
[2022-12-27] MEDS: carvedilol 6.25 mg Tablet PO ×2 (09:15→20:04)
[2022-12-27] MEDS: potassium chloride ER 20 mEq Tablet PO (09:15)
[2022-12-27] MEDS: atorvastatin 40 mg Tablet 80 MG PO (09:15)
[2022-12-27] MEDS: aspirin 81 mg EC Tablet PO (09:15)
[2022-12-27] MEDS: docusate sodium 100 mg Capsule PO ×2 (09:16→17:47)
[2022-12-27] MEDS: cetirizine 10 mg Tablet PO (09:16)
[2022-12-27] MEDS: clopidogrel 75 mg Tablet PO (09:16)
[2022-12-27] MEDS: pantoprazole DR 40 mg Tablet PO (09:16)
[2022-12-27] MEDS: acetaminophen 325 mg Tablet 650 MG PO ×2 (09:21→20:03)
--- NOTE | 2022-12-27 09:22 | PC.CHAP ---
Pastoral Care Encounter/Spiritual Assessment Type of Contact [] Declined firer gl[place] kiln visit [] Patient/Family/Request visit [] Outpatient visit [] Follow-up visit [] Physician referral [] Code/Alert [] Routine visit [] Staff referral [] Actively dying [] Patient sleeping [] Family support [] [] Out of room [] Palliative care [] [x] Receiving care in room [] Pre-surgical visit [] Trauma [] Long length of stay [] ICU visit [] Other: Relational/Emotional Strength [] Patient feels connected with others/family/visitors/staff [] Distress [] Loneliness/isolation [] Abandonment Spirituality of Patient [] Person of Joanna [] Attends Sabianist of their Joanna [] Believes in Prayer [] Reads Bible or Faith materials [] There are Spiritual issues to be addressed 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 Interventions [] Prayer [] Active listening [] Non-anxious presence [] Spiritual/emotional support [] Crisis/trauma care [] Spiritual counseling [] Bereavement support [] Provided bereavement packet [] Provided Bible/devotional materials [] Provided toy/stuffed animal, coloring book to patient or family member [] Provided Communion [] Anointing/[place] [] Salvation [] Completed spiritual assessment [] Other: Impact on Illness or Injury [] Angry [] Fearful [] Anxious [] Often cries [] Exhaustion [] Unable to work [] Unable to attend mu-ism [] Unable to walk/stand [] Unable to read [] Unable to drive [] Unable to eat/drink [] Unable to sleep [] Unable to be with family [] Patient intubated [] Other: Summary Time spent with patient
--- NOTE | 2022-12-27 10:03 | P.PN_ITS ---
Subjective Subjective: patient is doing okay with no chest pain. No recurrence of syncopal episode. Had a Myocardial perfusion imaging today. Was found to have a moderate area of ischemia in the distribution of the left circumflex/right coronary artery. patient also had a CT of the chest which revealed no evidence of any Pulmonary embolism or lung contusion. Medications: Medication Review Details: Current Medications Acetaminophen (Acetaminophen 325 Mg Tablet) 650 mg PO Q6H PRN PRN Reason: Mild/Mod Pain Or Temp >/= 101 Last Admin: 12/27/22 09:21 Dose: 650 mg Albuterol/Ipratropium (Ipratropium-Albuterol 3 Ml Neb) 3 ml INHALATION Q6H PRN PRN Reason: SHORTNESS OF BREATH Aminophylline (Aminophylline 25 Mg/Ml Sdv 10 Ml) 25 mg IVP Q2M PRN PRN Reason: see dose instructions Stop: 12/28/22 07:02 Last Admin: 12/27/22 07:28 Dose: 25 mg Aspirin (Aspirin 81 Mg Ec Tablet) 81 mg PO DAILY [facility] Last Admin: 12/27/22 09:15 Dose: 81 mg Atorvastatin Calcium (Atorvastatin 40 Mg Tablet) 80 mg PO DAILY [facility] Last Admin: 12/27/22 09:15 Dose: 80 mg Bisacodyl (Bisacodyl 5 Mg Tablet) 10 mg PO DAILY PRN; Protocol PRN Reason: Constipation (see protocol) Carvedilol (Carvedilol 6.25 Mg Tablet) 6.25 mg PO BID@0900,2100 [facility] Last Admin: 12/27/22 09:15 Dose: 6.25 mg Cetirizine HCl (Cetirizine 10 Mg Tablet) 10 mg PO DAILY [facility] Last Admin: 12/27/22 09:16 Dose: 10 mg Clopidogrel Bisulfate (Clopidogrel 75 Mg Tablet) 75 mg PO DAILY [facility] Last Admin: 12/27/22 09:16 Dose: 75 mg Docusate Sodium (Docusate Sodium 100 Mg Capsule) 100 mg PO BID [facility] Last Admin: 12/27/22 09:16 Dose: 100 mg Enoxaparin Sodium (Enoxaparin 120 Mg/0.8 Ml Syringe) 120 mg SUBCUT Q12H [facility] Last Admin: 12/27/22 05:43 Dose: 120 mg Potassium Chloride/Sodium Chloride (Sodium Chlor 0.9% + Kcl 20 Meq) 20 meq in 1,000 mls @ 50 mls/hr IV .Q20H [facility] Stop: 12/27/22 10:44 Last Admin: 12/26/22 15:21 Dose: 50 mls/hr Nicotine (Nicotine 7 Mg Patch) 1 patch TRANSDERMA DAILY PRN PRN Reason: NICOTINE WITHDRAWAL Nicotine Polacrilex (Nicotine 2 Mg Gum) 2 mg BUCCAL Q2H PRN PRN Reason: nicotine withdrawal if want gum Nitroglycerin (Nitroglycerin 0.4 Mg Sublingual Tablet) 0.4 mg SUBLINGUAL Q5M PRN PRN Reason: CHEST PAIN Stop: 12/28/22 07:02 Ondansetron HCl (Ondansetron 2 Mg/Ml Sdv 2 Ml) 4 mg IVP Q8H PRN PRN Reason: vomiting, or N/V if npo Ondansetron HCl (Ondansetron 2 Mg/Ml Sdv 2 Ml) 4 mg IVP Q2M PRN PRN Reason: NAUSEA Pantoprazole Sodium (Pantoprazole Dr 40 Mg Tablet) 40 mg PO DAILY [facility] Last Admin: 12/27/22 09:16 Dose: 40 mg Potassium Chloride (Potassium Chloride Er 20 Meq Tablet) 20 meq PO DAILY [facility] Last Admin: 12/27/22 09:15 Dose: 20 meq Vitals/I&O/Wt Last Vital Signs Temp 97.7 F 12/27/22 01:15 Pulse 69 12/27/22 09:30 Resp 31 H 12/27/22 09:30 BP 157/76 12/27/22 09:30 Pulse Ox 94 12/27/22 09:30 O2 Del Method Room Air 12/26/22 20:00 12/26/22 12/27/22 12/27/22 22:59 06:59 14:59 Intake Total 480 / 480 0 / 0 Balance 480 / 480 0 / 0 Weight last 48 hrs Weight 271 lb 3 oz Weight 270 lb Physical Exam Narrative: GENERAL: The patient is alert and oriented times three. Not in any acute distress. HEENT: No significant pallor, icterus or lymphadenopathy.Oral cavity: There are no mucous membrane lesions. NECK: Trachea appears to be central. No masses noted. No JVD or thyromegaly appreciated. RESPIRATORY: Chest is symmetrical. No intercostals muscle retraction or any accessory muscle activation. There is no chest wall tenderness. Breath sounds are heard bilaterally. No rales or rhonchi heard. No evidence of any consolidation. BREASTS: Deferred. HEART: The heart sounds are normal. No S3 or S4. Short systolic murmur in the left sternal border No pericardial rub ABDOMEN: No vessel pulsations or distention. Healing surgical scar in the lower abdomen( had a robotic surgery for the prostate recently) No organomegaly appreciated. Bowel sounds are normally heard. : Deferred. RECTAL: Deferred. LYMPHATIC: No lymphadenopathy noted in the neck. EXTREMITIES: No edema or cyanosis. No clubbing. MUSCULOSKELETAL: No acute joint deformities or swelling SKIN: There are no significant rashes or ecchymosis NEUROPSYCHIATRIC: The patient is alert and oriented x3. Appears to be in a good mood. No tremors or rigidity noted. Data 12/27/22 04:05 12/27/22 04:05 Other Labs: Laboratory Last Values WBC 12.39 10^3/uL (3.29-11.43) H 12/27/22 04:05 RBC 5.11 10^6/uL (3.85-5.65) 12/27/22 04:05 Hgb 14.90 g/dL (11.27-16.99) 12/27/22 04:05 Hct 44.5 % (37-53) 12/27/22 04:05 MCV 87.1 fl (82-101) 12/27/22 04:05 MCH 29.2 pg (27-33) 12/27/22 04:05 MCHC 33.5 g/dL (30-55) 12/27/22 04:05 RDW 13.4 % (12.1-15.1) 12/27/22 04:05 Plt Count 154 10^3/cmm (157-399) L 12/27/22 04:05 MPV 9.1 fL (7.4-10.4) 12/27/22 04:05 Neut % (Auto) 71.9 % 12/27/22 04:05 Lymph % (Auto) 18.6 % 12/27/22 04:05 Toole % (Auto) 6.3 % 12/27/22 04:05 Eos % (Auto) 2.3 % 12/27/22 04:05 Baso % (Auto) 0.2 % 12/27/22 04:05 Neut # (Auto) 8.90 10^3/uL (1.8-7.7) H 12/27/22 04:05 Lymph # (Auto) 2.3 10^3/uL (0.8-4.8) 12/27/22 04:05 Toole # (Auto) 0.8 10^3/uL (0.2-0.9) 12/27/22 04:05 Eos # (Auto) 0.3 10^3/uL (0.0-0.8) 12/27/22 04:05 Baso # (Auto) 0.0 10^3/uL (0.0-0.1) 12/27/22 04:05 Nucleated RBC % (auto) 0 % 12/27/22 04:05 Nucleated RBCs # 0.0 /100WBC 12/27/22 04:05 PT 14.70 SECONDS (12.1-14.9) 12/27/22 04:05 INR 1.11 (0.8-1.2) 12/27/22 04:05 APTT 34.3 SECONDS (23.9-36.7) 12/27/22 04:05 D-Dimer 6.74 ug/mLFEU (0-0.59) H 12/26/22 15:55 Specimen Type Arterial 12/26/22 17:42 Sample Site Radial, left 12/26/22 17:42 ABG pH 7.47 (7.35-7.45) H 12/26/22 17:42 ABG pCO2 39.9 mmHg (35-45) 12/26/22 17:42 ABG pO2 59.2 mmHg (80.0-100.0) L 12/26/22 17:42 ABG HCO3 28.7 mmol/L (22-26) H 12/26/22 17:42 ABG O2 Saturation 93.2 12/26/22 17:42 ABG Base Excess 4.5 mmol/L (-2.0-2.0) H 12/26/22 17:42 [place] Test Pos 12/26/22 17:42 A-a O2 Gradient 5.4 mmHg (5-10) 12/26/22 17:42 Hematocrit 47.8 % (42-52) 12/26/22 17:42 Hgb O2 Saturation 91.2 % (95-100) L 12/26/22 17:42 Carboxyhemoglobin 2.0 %THgb (0.4-20.1) 12/26/22 17:42 Methemoglobin 0.1 % (0.4-1.5) L 12/26/22 17:42 Total Hemoglobin 15.6 g/dL (14-18) 12/26/22 17:42 Sodium 140.0 mmol/L (131-143) 12/26/22 17:42 Potassium 3.7 mmol/L (3.5-5.0) 12/26/22 17:42 Glucose 128.0 mg/dL (70-115) H 12/26/22 17:42 Ionized Calcium 1.3 mmol/L (1.1-1.4) 12/26/22 17:42 O2 Delivery Device Room air 12/26/22 17:42 Senior Qualitative Researcher ID [id number] 12/26/22 17:42 Sodium 140 mmol/L (136-145) 12/27/22 04:05 Potassium 4.0 mmol/L (3.5-5.1) 12/27/22 04:05 Chloride 103 mmol/L (98-107) 12/27/22 04:05 Carbon Dioxide 28 mmol/L (22-29) 12/27/22 04:05 Anion Gap 13.0 (5-19) 12/27/22 04:05 BUN 28 mg/dL (8-23) H 12/27/22 04:05 Creatinine 0.8 mg/dL (0.7-1.2) 12/27/22 04:05 GFR Calculation 96.7 mL/min (90-130) 12/27/22 04:05 Glucose 115 mg/dL (65-115) 12/27/22 04:05 Estimat Average Glucose 131 12/27/22 04:05 Hemoglobin A1c 6.2 % (4.0-6.0) H 12/27/22 04:05 Calculated Osmolality 296 mOsm/kg (285-295) H 12/27/22 04:05 Calcium 8.8 mg/dL (8.5-10.5) 12/27/22 04:05 Phosphorus 3.7 mg/dL (2.5-4.5) 12/27/22 04:05 Magnesium 1.6 mg/dL (1.7-2.3) L 12/27/22 04:05 Total Bilirubin 0.7 mg/dL (0.15-1.2) 12/26/22 09:55 AST 39 U/L (0-40) 12/26/22 09:55 ALT 52 U/L (0-41) H 12/26/22 09:55 Alkaline Phosphatase 119 U/L (40-130) 12/26/22 09:55 Troponin T Baseline 107 ng/L (0-15) H* 12/26/22 09:55 Troponin T 120 Minute 89.49 ng/L (0-15) H 12/26/22 12:04 Delta Troponin T -17.51 ABS# (0-10) L 12/26/22 12:04 Troponin T Hi Sens 6Hr 73.10 ng/L (0-15) H 12/26/22 15:55 Troponin T Hi Sens 6Hr Delta -33.90 ng/L (0-12) L 12/26/22 15:55 Total Protein 7.3 g/dL (6.6-8.7) 12/26/22 09:55 Albumin 4.0 g/dL (3.5-5.2) 12/26/22 09:55 Globulin 3.3 g/dL (1.3-4.6) 12/26/22 09:55 Triglycerides 122 mg/dL (0-150) 12/27/22 04:05 Cholesterol 119 mg/dL (0-200) 12/27/22 04:05 LDL Cholesterol, Calc 65 mg/dL (50-129) 12/27/22 04:05 HDL Cholesterol 30 mg/dL (60-100) L 12/27/22 04:05 LDL/HDL Ratio 2.17 RATIO (0.00-3.22) 12/27/22 04:05 Cholesterol/HDL Ratio 3.97 mg/dL (1.0-5.00) 12/27/22 04:05 Lipase 32 U/L (13-60) 12/26/22 09:55 Procalcitonin 0.08 ng/mL (0-0.5) 12/26/22 09:55 TSH 1.03 uIU/mL (0.27-4.20) 12/27/22 04:05 Urine Color Yellow (Yellow) 12/26/22 13:53 Urine Appearance Clear (CLEAR) 12/26/22 13:53 Urine pH 6.5 (5-7) 12/26/22 13:53 Ur Specific [place] 1.000 (1.005-1.030) L 12/26/22 13:53 Urine Protein Trace (Negative) 12/26/22 13:53 Urine Glucose (UA) Norm (Normal) 12/26/22 13:53 Urine Ketones Negative (Negative) 12/26/22 13:53 Urine Blood Neg (Negative) 12/26/22 13:53 Urine Nitrate Negative (Negative) 12/26/22 13:53 Urine Bilirubin Neg (Negative) 12/26/22 13:53 Urine Urobilinogen Norm mg/dL (Negative) 12/26/22 13:53 Ur Leukocyte Esterase Negative (Negative) 12/26/22 13:53 Urine RBC None /hpf (0-2) 12/26/22 13:53 Urine WBC 0-4 /hpf (0-5) H 12/26/22 13:53 Ur Squamous Epith Cells 0-4 /hpf (0-5) H 12/26/22 13:53 Amorphous Sediment Not Reportable 12/26/22 13:53 Urine Bacteria Trace /hpf (NONE) 12/26/22 13:53 Other data: Myocardial perfusion imaging from today ?1.? MPI revealed Myocardial perfusion imaging revealing moderate area of ?moderate to severely decreased tracer uptake in the inferior, inferolateral, ?anterolateral and apical lateral regions with significant reversibility, ?suggesting myocardial scarring with ischemia in the distribution of the right ?coronary artery and circumflex artery. ?2.? Normal LV ejection fraction of 59%. ?3.? Wall motion abnormalities as mentioned above ?4.? Normal LV volume ?Compared to the study from 09/12/2019, the ischemic burden has significantly ?increased chest CTA from today 1. No pulmonary embolism. 2. No rib fractures or spine fractures are identified. No soft tissue injury. 3. No pulmonary contusion or pneumothorax. A&P Assessment and plan (1) Syncope: in view of the abnormal perfusion scan, possibility of coronary ischemia/arrhythmia causing the syncopal episode is a strong consideration. (2) Atherosclerosis of coronary artery of [place] heart without angina pectoris: Patient has severe three-vessel coronary artery disease. Occluded venous graft to the RCA and circumflex marginals. Patent SINGH to the LAD. The most of the coronary circulation is through the left anterior descending artery. Discussed with the patient about the abnormal Myocardial perfusion imaging. For further evaluation of his coronary status as well as the Status, he requires a cardiac catheterization. The risk of bleeding, hematoma, vascular injury, myocardial infarction, myocardial perforation, malignant cardiac arrhythmias ,CVA, renal failure and other concomitant complications were explained in detail. Patient understood this well and consented to proceed. We may go ahead and do schedule the procedure for the morning. (3) HTN (hypertension): The blood pressure seems to be under control. May continue on the current medications. (4) Hyperlipidemia: We will continue on the current medications. (5) Nicotine dependence, cigarettes, with other nicotine-induced disorders: Strongly advised to quit smoking. Plan Based on the results of the above tests and the patient's clinical progress, further recommendations will be made. Attestations Medical Necessity Statement*: Patient requires continued hospital stay for close monitoring and further management Coding Level of Care Code 30954 Diagnoses Syncope R55 Atherosclerosis of coronary artery of [place] heart without angina pectoris I25.10 HTN (hypertension) I10 Hyperlipidemia E78.5 Nicotine dependence, cigarettes, with other nicotine-induced disorders F17.218
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
--- NOTE | 2022-12-27 19:24 | NMCV_ITS ---
NM gail perf SPECT r/s* [id number] Moncho eMdina Age: 67 Gender: M : 1955 Exam Date: 12/27/2022 06:29 Ordering Phys: Roque Bowen MD ([email or web address]) Technologist: LUICO Jacome Exam Location: [facility] Indications: CHEST PAIN STRESS TEST Please see separate stress test report in [facility] for full findings IMAGE PROTOCOL Rest/Stress 1 Lexiscan Day Radiopharmaceutical Dose (mCi) Administration Site Administered by Rest: Tc-99m 11.0 IV LUCIO Coker Sestamibi Stress:Tc-99m 33.0 IV LUCIO Coker Sestamibi Rest: 27-Dec-2022 60 Discovery 630 Stress: 27-Dec-2022 30 Discovery 630 0.4mg Lexiscan. Supine position only as patient was unable to lay prone. SPECT RESULTS Technical Quality: Excellent Raw Data Analysis: Normal Image Corrections: No attenuation or motion correction applied Summed Stress Score: 11 Summed Rest Score: 4 Summed Difference Score: 8 PERFUSION FINDINGS Moderate area of moderate to severely decreased tracer uptake was noted in the basal and mid inferior, basal and mid inferolateral, mid anterolateral and apical lateral regions. Significant reversibility was noted in these regions at rest FUNCTIONAL RESULTS (calculated via Gated SPECT) Stress Image LV EF (%): 59 Stress EDV (mL):90 TID: 1.05 Stress ESV (mL):37 FUNCTIONAL FINDINGS: Segmental wall motion analysis revealed diffuse hypokinesis of the septum IMPRESSIONS 1. MPI revealed Myocardial perfusion imaging revealing moderate area of moderate to severely decreased tracer uptake in the inferior, inferolateral, anterolateral and apical lateral regions with significant reversibility, suggesting myocardial scarring with ischemia in the distribution of the right coronary artery and circumflex artery. 2. Normal LV ejection fraction of 59%. 3. Wall motion abnormalities as mentioned above 4. Normal LV volume Compared to the study from 09/12/2019, the ischemic burden has significantly increased Dr Roque Bowen MD FACC (Electronically Signed) Final Date: 27 December 2022 10:41 S
[2022-12-28] VITALS (138 sets, daily range): BP systolic 94–139; BP diastolic 47–87; PULSE 38–83; RESP 9–39; TEMP 36.5–36.8; O2SAT 72–96; BMI 37.3
--- NOTE | 2022-12-28 | XACV_ITS ---
Exam Room: [facility] Ht: 183 cm Wt: 123 kg BSA: 2.54 m2 Gender: Male : 1955 Any Known Allergies: Other Exam Priority: Routine Procedure(s): Procedure Description: Diagnostic procedure Procedure Description: PCI procedure Procedure Description: Left Heart Catheterization Procedure Description: Venous Graft Catheterization Procedure Description: SINGH Graft Catheterization Procedure Description: Miscellaneous Procedure Description: ACT Procedure Description: Coronary Angiography Andrés CAPONE; Diagnostic Cath Status: Urgent Diagnostic Findings * The left main is a medium caliber vessel which was found to have an ostial around 40 to 50% narrowing. * The left and descending artery is a medium caliber vessel which was found to have moderate diffuse disease in the proximal segment. After the first septal bank note designer, the artery appears to be totally occluded.. * The left circumflex artery is a medium caliber vessel which was found to have around 40 to 50% ostial narrowing. The proximal circumflex artery was found to have mild diffuse disease. At the mid circumflex, there was a high-grade stenosis of around 90 to 95%. The distal circumflex artery was found to have mild diffuse disease. The artery appears to gives off multiple marginal vessels distally.. * The right coronary artery is a medium caliber vessel which was found to have moderate diffuse disease proximally. After the first RV branch, the artery appears to be completely occluded. * The venous graft to the obtuse marginal and RCA were found to be chronically occluded. * The SINGH to the LAD was found to be patent. Left to left and left to right collaterals were noted from the LAD. The distal LAD was found to have mild diffuse intimal irregularities. No significant stenotic lesions were noted. * During interventional procedure, better picture of left main artery with guide catheter showed severe 70% stenosis. PCI Status: Urgent PCI Indication: Other Interventional Findings * Procedure detail: We engaged left main artery with XB 3.5 guide catheter. IV heparin was administered to maintain anticoagulation. 0.014 run-through guidewire was used to cross the left circumflex artery stenosis and was put in distal vessel. We predilated the mid left circumflex artery stenosis with 2.25 x 12 mm semicompliant balloon. This was followed by placement of 2.5 x 15mm resolute [place] drug-eluting stent. We then performed intravascular lithotripsy with 4.0x12mm shockwave balloon for left main artery stenosis. 40 pulses were delivered. This was followed by placement of 4.0 x 12 mm resolute [place] drug-eluting stent. We then performed IVUS that showed excellent stent expansion and no residual stenosis. At this time guidewire and guide catheter were removed. Patient left the Design Lead in a stable condition.. * Mid Circumflex: 95% stenosis treated with a AB TREK 2.25X12 RX BALLOON, and MDT R PARISH 2.5X15 JHOAN. 0% residual stenosis, TERRANCE: 3 flow. * Left Main: 70% stenosis treated with a MDT R PAR[place] 4.0X12 JOHAN. 0% residual stenosis, TERRANCE: 3 flow. Conclusions 1. 67-year-old white male with history of atherosclerotic heart diseas, status post three-vessel coronary bypass surgery, presented with complaints of recurrent syncopal episode. He had a myocardial perfusion imaging which revealed a moderate area of ischemia in the distribution of the left circumflex artery/right coronary artery. For further evaluation of his coronary status as well as the graft status, a repeat cardiac catheterization was recommended. Patient is known to have occluded venous graft to the obtuse marginal and right coronary artery. He underwent left heart catheterization with a left and right coronary angiogram today. The findings are as follows. 2. Medium caliber left main with an ostial, 40 to 50% stenosis. The left and descending artery was found to be totally occluded after the first septal bank note designer. Moderate diffuse disease was noted in the proximal segment. The left circumflex artery was found to have a high-grade lesion at the mid segment. Ostium of the artery was found to have around 40 to 50% stenosis. The right coronary artery was totally occluded after the first RV branch. Moderate diffuse disease was noted in the proximal segment. The venous grafts were found to be chronically occluded. SINGH to LAD was found to be patent. Distal LAD was found to have mild diffuse disease. Left to right and [id number] collaterals were noted. The LVEDP was 4 mmHg. 3. The cardiac arrhythmias data was reviewed and discussed with Dr. Tejada. It was thought to be appropriate to consider PCI of the circumflex and possibly left main artery lesions. Dr. Tejada took over further management this patient at this point. 4. Successful revascularization of left main artery with intravascular lithotripsy shockwave balloon angioplasty and 1 stent. 5. Successful revascularization of mid left circumflex artery stenosis with 1 stent. 6. Left Main was treated with a Drug Eluting Stent. 7. Mid Circumflex was treated with a Balloon, and Drug Eluting Stent. Recommendations * Dual antiplatelet therapy with aspirin and plavix for atleast 1 year. * High intensity statin therapy. * Outpatient cardiology follow up in 4 weeks. Interventional RX Recommendation: PCI w/o planned CABG Diagnostic RX Recommendation: PCI w/o planned CABG Anticoagulation: Heparin LV EDP: 4 mmHg Left Ventriculography Findings: * The LV gram was not performed because of the concern of dye overload. Pressures Phase:Rest AO : 103 / 73 ( 88 ) @ 10:14:00 AM 83 / 62 ( 73 ) @ 10:19:00 AM 121 / 54 ( 81 ) @ 10:28:00 AM 116 / 55 ( 78 ) @ 10:28:00 AM 96 / 57 ( 75 ) @ 10:58:00 AM 114 / 62 ( 84 ) @ 11:07:00 AM LV : 118 / -21 / 4 @ 10:28:00 AM 114 / -16 / 9 @ 10:28:00 AM Valves Phase:DefaultPhase AV : 0.0 @ 3:59:47 PM 0.0 @ 3:59:47 PM AV Mean Gradient: 0.0 @ 3:59:47 PM 0.0 @ 3:59:47 PM Clinical Evaluation EBL: 5mL-10mL Procedural Details Procedure Consent Obtained. Pre-Procedure Time Out. Identified patient by full name and date of as verbalized by the patient/guarantor. Does the consent match the physician's order: Yes. Accurate & Complete Informed Consent: Yes. Inpatient/Outpatient History & Physical on Chart: Yes. If H&P is completed, is and addenduem needed: No. Visualize and Verify Site with Patient/Guarantor: N/A. Relevant Radiology Images available: Yes. The risks, benefits, and alternatives of sedation and/or procedure were discussed by physician. The patient agrees to continue. Procedure started. [facility] Clinical Fraility Score: 3: Managing Well. Design Lead Indications: Suspected CAD/Abnormal stress test. Chest Pain Symptom Assessment: Atypical Angina. Cardiovascular Instability: No. Correct patient, site and procedure confirmed by cath team. PERRLA. Strong, equal hand horseradish maker bilaterally. Lungs clear x 5 lobes. IV Site on Arrival: 18 gauge in the left anticubital. IV Fluids: 0.9% NaCl at KVO. 0 mL infused prior to laborer construction or leak gang. Pre Procedural Pulses: bilateral dorsalis pedis was Doppled. Pre Procedural Pulses: bilateral posterior tibial was Doppled. Oxygen started at 2liters/min via nasal canula. bilateral groins was prepped with chloroprep then draped in the usual sterile fashion. Physician notified. Patient's family in the laborer construction or leak gang waiting room. Dr. Bowen will update at the completion of the procedure. Equipment: 5F - Radial. Cardiac Cath Pack. ACIST Manifold Kit Model BT 2000. Heparinized Saline (2 units/mL), 1000 mL bag. Inventory is PingSomeGiftRocket 5Fr [facility]. Physician arrived. Physician scrubbed in. Immediate Pre-Procedure Time Out. Correct Patient: Yes; Correct Procedure: Yes; Correct Site: Yes; Correct Patient Position: Yes; Correct Supplies: Yes; Dried Flammable Prep: Yes; Blood Products Available: N/A;. Lidocaine 1% infiltrated to the right groin. Arterial access obtained with micropuncture set. A 5 honduran JL4 catheter in over wire. Multiple views taken of left coronary artery. Dr. Tejada called to view cineography. Catheter removed over the standard wire. A 5 honduran JR4 catheter in over wire. Dr. Tejada here. Multiple views taken of right coronary artery. Catheter redirected to the SVG-->Om. SVG's to OM visualized. Catheter redirected to the SINGH-->LAD. SINGH to LAD visualized. Catheter removed over the standard wire. A 5 honduran Angled Pig catheter in over wire. EDP Sample taken: LV 118/-22,4; HR: 72 BPM; SpO2: 98%. Pullback taken: LV 114/-17,9; AO 121/54(81); Mean: 0mmHg, Peak to Peak: 0mmHg, SEP: 6sec/min; HR: 69 BPM; SpO2: 97%. Dr. Bowen scrubbed out. Patient's family updated by Dr. Bowen and Dr. Tejada. Will continue with PCI. Dr. Tejada scrubbed in. Sheath upsized to a 6 Fr. 6 honduran XB 3.5 guide catheter was inserted over the wire. Runthrough guidewire was advanced through the guide catheter to lesion in the mid Circ. Inflation number : 1 A AB TREK 2.25X12 RX BALLOON was prepped and advanced across the Mid CX , then inflated to 8 IVETTE for 0:22 seconds. Inflation Number : 2 A MDT R [place] 2.5X15 JHOAN -Lot Number# [id number] was prepped and advanced across the Mid CX. The stent was deployed at 12 IVETTE for 0:18 seconds.Exp. 2023-09-30. Stent balloon out over wire. ACT drawn. Results out of range high. Will redraw. Shockwave C2 Lithotripsy 4.0 x 12 catheter in over the wire and advanced to the left main. Lithotripsy performed for a total of 40 pulses. Shockwave C2 Lithotripsy catheter out OTW. Inflation Number : 1 A MDT R [place] 4.0X12 JHOAN -Lot Number# [id number] was prepped and advanced across the LMCA. The stent was deployed at 12 IVETTE for 0:17 seconds. Exp. 2023-04-06. Stent balloon out over wire. Results checked. IVUS catheter in OTW. Measurements obatined. IVUS catheter out OTW. Wire out. ACT drawn. Results 324 seconds. Therapeutic limits - pre-heparin administration 90-150 seconds and monitoring heparin during a vascular procedure >250 seconds. Guide catheter out. Dr. Tejada scrubbed out. Family updated. A Suture was successful obtaining hemostatsis at the Right Femoral artery insertion site. Sterile 4x4's and Op-site applied over the site. No oozing or signs and symptoms of hematoma noted. Post Procedure: Pulses reassessed and unchanged. PERRLA. Strong, equal hand horseradish maker bilaterally. No VTE prophylaxis required. Medication's Wasted: Other = Versed 1 mg. Total IV fluids: 435 mL. PCI Indication: CAD (without ischemic symptoms). Post-op diagnosis: Severe Ostial and Mid CX stenosis s/p PCI with Lithotripsy of the Left main and PCI of the mid CX. Complications: none. Estimated blood loss: 5mL-10mL. Responsiveness - Normal response to verbal stimuli; alert and oriented, PERRLA. Airway - Unaffected, no intervention required; spontaneous ventilation. Circulation: W/N/L, pulses unchanged. Nausea/Vomiting: No. Procedure completed. Patient transferred by bed to 1st floor. Vital chart was stopped. Procedure started. Access Site Site: Right Femoral artery Sheath Size: 5 Fr Hemostasis Method: Suture Hemostasis Success: Successful Procedure Medications Start: 9:12 AM Stop: 9:12 AM Medication: Versed Amount: 1 mg Route: I.V. Start: 9:13 AM Stop: 9:13 AM Medication: Fentanyl Amount: 50 mcg Route: I.V. Start: 9:13 AM Stop: 9:13 AM Medication: Versed Amount: 1 mg Route: I.V. Start: 9:13 AM Stop: 9:13 AM Medication: Heparin Amount: 1500 units Route: I.V. Start: 9:54 AM Stop: 9:54 AM Medication: Heparin Amount: 9000 units Route: I.V. Start: 9:54 AM Stop: 9:54 AM Medication: Versed Amount: 1 mg Route: I.V. Start: 10:07 AM Stop: 10:07 AM Medication: Heparin Amount: 1000 units Route: I.V. Start: 10:36 AM Stop: 10:36 AM Medication: Plavix Amount: 300 mg Route: P.O. I, the attending physician, have reviewed and verified all procedure medications. Yes, all medications given per verbal order History/Risk Factors Hypertension: Yes Dyslipidemia: No Peripheral Arterial Disease (PAD): No Myocardial Infarction ([place]): No Obesity: Yes Renal Disease: No Tobacco Use: Current/Recent(w/in 1 year) Prior Interventions PCI: Yes CABG: Yes Valve Surgery: No Report Signatures Interventional Workflow Finalized by Surinder Tejada MD on 12/31/2022 11:24 AM Diagnostic Workflow Finalized by Dr Roque Bowen MD [facility] on 12/29/2022 09:17 AM
--- NOTE | 2022-12-28 06:56 | PM.PN ---
Subjective Subjective: Patient denies any chest pain. No significant arrhythmias on the monitor. Vitals are remaining stable. Denies any new symptoms. Medications: Medication Review Details: Current Medications Acetaminophen (Acetaminophen 325 Mg Tablet) 650 mg PO Q6H PRN PRN Reason: Mild/Mod Pain Or Temp >/= 101 Last Admin: 12/27/22 20:03 Dose: 650 mg Albuterol/Ipratropium (Ipratropium-Albuterol 3 Ml Neb) 3 ml INHALATION Q6H PRN PRN Reason: SHORTNESS OF BREATH Aminophylline (Aminophylline 25 Mg/Ml Sdv 10 Ml) 25 mg IVP Q2M PRN PRN Reason: see dose instructions Stop: 12/28/22 07:02 Last Admin: 12/27/22 07:28 Dose: 25 mg Aspirin (Aspirin 81 Mg Ec Tablet) 81 mg PO DAILY [facility] Last Admin: 12/27/22 09:15 Dose: 81 mg Atorvastatin Calcium (Atorvastatin 40 Mg Tablet) 80 mg PO DAILY [facility] Last Admin: 12/27/22 09:15 Dose: 80 mg Bisacodyl (Bisacodyl 5 Mg Tablet) 10 mg PO DAILY PRN; Protocol PRN Reason: Constipation (see protocol) Carvedilol (Carvedilol 6.25 Mg Tablet) 6.25 mg PO BID@0900,2100 [facility] Last Admin: 12/27/22 20:04 Dose: 6.25 mg Cetirizine HCl (Cetirizine 10 Mg Tablet) 10 mg PO DAILY [facility] Last Admin: 12/27/22 09:16 Dose: 10 mg Clopidogrel Bisulfate (Clopidogrel 75 Mg Tablet) 75 mg PO DAILY [facility] Last Admin: 12/27/22 09:16 Dose: 75 mg Docusate Sodium (Docusate Sodium 100 Mg Capsule) 100 mg PO BID [facility] Last Admin: 12/27/22 17:47 Dose: 100 mg Enoxaparin Sodium (Enoxaparin 120 Mg/0.8 Ml Syringe) 120 mg SUBCUT Q12H [facility] Last Admin: 12/28/22 06:22 Dose: Not Given Sodium Chloride (Sodium Chloride 0.9%) 1,000 mls @ 50 mls/hr IV .Q20H ONE Stop: 12/28/22 14:39 Nicotine (Nicotine 7 Mg Patch) 1 patch TRANSDERMA DAILY PRN PRN Reason: NICOTINE WITHDRAWAL Nicotine Polacrilex (Nicotine 2 Mg Gum) 2 mg BUCCAL Q2H PRN PRN Reason: nicotine withdrawal if want gum Nitroglycerin (Nitroglycerin 0.4 Mg Sublingual Tablet) 0.4 mg SUBLINGUAL Q5M PRN PRN Reason: CHEST PAIN Stop: 12/28/22 07:02 Ondansetron HCl (Ondansetron 2 Mg/Ml Sdv 2 Ml) 4 mg IVP Q8H PRN PRN Reason: vomiting, or N/V if npo Ondansetron HCl (Ondansetron 2 Mg/Ml Sdv 2 Ml) 4 mg IVP Q2M PRN PRN Reason: NAUSEA Pantoprazole Sodium (Pantoprazole Dr 40 Mg Tablet) 40 mg PO DAILY [facility] Last Admin: 12/27/22 09:16 Dose: 40 mg Potassium Chloride (Potassium Chloride Er 20 Meq Tablet) 20 meq PO DAILY [facility] Last Admin: 12/27/22 09:15 Dose: 20 meq Vitals/I&O/Wt Last Vital Signs Temp 97.7 F 12/28/22 00:15 Pulse 62 12/28/22 05:36 Resp 18 12/28/22 04:25 BP 115/74 12/28/22 04:00 Pulse Ox 92 12/28/22 04:25 O2 Del Method Room Air 12/27/22 20:00 12/27/22 12/27/22 12/28/22 14:59 22:59 06:59 Intake Total 1120 / 1120 360 / 1480 Balance 1120 / 1120 360 / 1480 Weight last 48 hrs Weight 275 lb 1 oz Weight 271 lb 3 oz Weight 270 lb Physical Exam Narrative: GENERAL: The patient is alert and oriented times three. Not in any acute distress. HEENT: No significant pallor, icterus or lymphadenopathy.Oral cavity: There are no mucous membrane lesions. NECK: Trachea appears to be central. No masses noted. No JVD or thyromegaly appreciated. RESPIRATORY: Chest is symmetrical. No intercostals muscle retraction or any accessory muscle activation. There is no chest wall tenderness. Breath sounds are heard bilaterally. No rales or rhonchi heard. No evidence of any consolidation. BREASTS: Deferred. HEART: The heart sounds are normal. No S3 or S4. Short systolic murmur in the left sternal border No pericardial rub ABDOMEN: No vessel pulsations or distention. Healing surgical scar in the lower abdomen( had a robotic surgery for the prostate recently) No organomegaly appreciated. Bowel sounds are normally heard. : Deferred. RECTAL: Deferred. LYMPHATIC: No lymphadenopathy noted in the neck. EXTREMITIES: No edema or cyanosis. No clubbing. MUSCULOSKELETAL: No acute joint deformities or swelling SKIN: There are no significant rashes or ecchymosis NEUROPSYCHIATRIC: The patient is alert and oriented x3. Appears to be in a good mood. No tremors or rigidity noted. Data 12/27/22 04:05 12/27/22 04:05 Other Labs: Laboratory Last Values WBC 12.39 10^3/uL (3.29-11.43) H 12/27/22 04:05 RBC 5.11 10^6/uL (3.85-5.65) 12/27/22 04:05 Hgb 14.90 g/dL (11.27-16.99) 12/27/22 04:05 Hct 44.5 % (37-53) 12/27/22 04:05 MCV 87.1 fl (82-101) 12/27/22 04:05 MCH 29.2 pg (27-33) 12/27/22 04:05 MCHC 33.5 g/dL (30-55) 12/27/22 04:05 RDW 13.4 % (12.1-15.1) 12/27/22 04:05 Plt Count 154 10^3/cmm (157-399) L 12/27/22 04:05 MPV 9.1 fL (7.4-10.4) 12/27/22 04:05 Neut % (Auto) 71.9 % 12/27/22 04:05 Lymph % (Auto) 18.6 % 12/27/22 04:05 Nobles % (Auto) 6.3 % 12/27/22 04:05 Eos % (Auto) 2.3 % 12/27/22 04:05 Baso % (Auto) 0.2 % 12/27/22 04:05 Neut # (Auto) 8.90 10^3/uL (1.8-7.7) H 12/27/22 04:05 Lymph # (Auto) 2.3 10^3/uL (0.8-4.8) 12/27/22 04:05 Nobles # (Auto) 0.8 10^3/uL (0.2-0.9) 12/27/22 04:05 Eos # (Auto) 0.3 10^3/uL (0.0-0.8) 12/27/22 04:05 Baso # (Auto) 0.0 10^3/uL (0.0-0.1) 12/27/22 04:05 Nucleated RBC % (auto) 0 % 12/27/22 04:05 Nucleated RBCs # 0.0 /100WBC 12/27/22 04:05 PT 14.70 SECONDS (12.1-14.9) 12/27/22 04:05 INR 1.11 (0.8-1.2) 12/27/22 04:05 APTT 34.3 SECONDS (23.9-36.7) 12/27/22 04:05 D-Dimer 6.74 ug/mLFEU (0-0.59) H 12/26/22 15:55 Specimen Type Arterial 12/26/22 17:42 Sample Site Radial, left 12/26/22 17:42 ABG pH 7.47 (7.35-7.45) H 12/26/22 17:42 ABG pCO2 39.9 mmHg (35-45) 12/26/22 17:42 ABG pO2 59.2 mmHg (80.0-100.0) L 12/26/22 17:42 ABG HCO3 28.7 mmol/L (22-26) H 12/26/22 17:42 ABG O2 Saturation 93.2 12/26/22 17:42 ABG Base Excess 4.5 mmol/L (-2.0-2.0) H 12/26/22 17:42 [place] Test Pos 12/26/22 17:42 A-a O2 Gradient 5.4 mmHg (5-10) 12/26/22 17:42 Hematocrit 47.8 % (42-52) 12/26/22 17:42 Hgb O2 Saturation 91.2 % (95-100) L 12/26/22 17:42 Carboxyhemoglobin 2.0 %THgb (0.4-20.1) 12/26/22 17:42 Methemoglobin 0.1 % (0.4-1.5) L 12/26/22 17:42 Total Hemoglobin 15.6 g/dL (14-18) 12/26/22 17:42 Sodium 140.0 mmol/L (131-143) 12/26/22 17:42 Potassium 3.7 mmol/L (3.5-5.0) 12/26/22 17:42 Glucose 128.0 mg/dL (70-115) H 12/26/22 17:42 Ionized Calcium 1.3 mmol/L (1.1-1.4) 12/26/22 17:42 O2 Delivery Device Room air 12/26/22 17:42 Coin Collector ID Gd 12/26/22 17:42 Sodium 140 mmol/L (136-145) 12/27/22 04:05 Potassium 4.0 mmol/L (3.5-5.1) 12/27/22 04:05 Chloride 103 mmol/L (98-107) 12/27/22 04:05 Carbon Dioxide 28 mmol/L (22-29) 12/27/22 04:05 Anion Gap 13.0 (5-19) 12/27/22 04:05 BUN 28 mg/dL (8-23) H 12/27/22 04:05 Creatinine 0.8 mg/dL (0.7-1.2) 12/27/22 04:05 GFR Calculation 96.7 mL/min (90-130) 12/27/22 04:05 Glucose 115 mg/dL (65-115) 12/27/22 04:05 Estimat Average Glucose 131 12/27/22 04:05 Hemoglobin A1c 6.2 % (4.0-6.0) H 12/27/22 04:05 Calculated Osmolality 296 mOsm/kg (285-295) H 12/27/22 04:05 Calcium 8.8 mg/dL (8.5-10.5) 12/27/22 04:05 Phosphorus 3.7 mg/dL (2.5-4.5) 12/27/22 04:05 Magnesium 1.6 mg/dL (1.7-2.3) L 12/27/22 04:05 Total Bilirubin 0.7 mg/dL (0.15-1.2) 12/26/22 09:55 AST 39 U/L (0-40) 12/26/22 09:55 ALT 52 U/L (0-41) H 12/26/22 09:55 Alkaline Phosphatase 119 U/L (40-130) 12/26/22 09:55 Troponin T Baseline 107 ng/L (0-15) H* 12/26/22 09:55 Troponin T 120 Minute 89.49 ng/L (0-15) H 12/26/22 12:04 Delta Troponin T -17.51 ABS# (0-10) L 12/26/22 12:04 Troponin T Hi Sens 6Hr 73.10 ng/L (0-15) H 12/26/22 15:55 Troponin T Hi Sens 6Hr Delta -33.90 ng/L (0-12) L 12/26/22 15:55 Total Protein 7.3 g/dL (6.6-8.7) 12/26/22 09:55 Albumin 4.0 g/dL (3.5-5.2) 12/26/22 09:55 Globulin 3.3 g/dL (1.3-4.6) 12/26/22 09:55 Triglycerides 122 mg/dL (0-150) 12/27/22 04:05 Cholesterol 119 mg/dL (0-200) 12/27/22 04:05 LDL Cholesterol, Calc 65 mg/dL (50-129) 12/27/22 04:05 HDL Cholesterol 30 mg/dL (60-100) L 12/27/22 04:05 LDL/HDL Ratio 2.17 RATIO (0.00-3.22) 12/27/22 04:05 Cholesterol/HDL Ratio 3.97 mg/dL (1.0-5.00) 12/27/22 04:05 Lipase 32 U/L (13-60) 12/26/22 09:55 Procalcitonin 0.08 ng/mL (0-0.5) 12/26/22 09:55 TSH 1.03 uIU/mL (0.27-4.20) 12/27/22 04:05 Urine Color Yellow (Yellow) 12/26/22 13:53 Urine Appearance Clear (CLEAR) 12/26/22 13:53 Urine pH 6.5 (5-7) 12/26/22 13:53 Ur Specific [place] 1.000 (1.005-1.030) L 12/26/22 13:53 Urine Protein Trace (Negative) 12/26/22 13:53 Urine Glucose (UA) Norm (Normal) 12/26/22 13:53 Urine Ketones Negative (Negative) 12/26/22 13:53 Urine Blood Neg (Negative) 12/26/22 13:53 Urine Nitrate Negative (Negative) 12/26/22 13:53 Urine Bilirubin Neg (Negative) 12/26/22 13:53 Urine Urobilinogen Norm mg/dL (Negative) 12/26/22 13:53 Ur Leukocyte Esterase Negative (Negative) 12/26/22 13:53 Urine RBC None /hpf (0-2) 12/26/22 13:53 Urine WBC 0-4 /hpf (0-5) H 12/26/22 13:53 Ur Squamous Epith Cells 0-4 /hpf (0-5) H 12/26/22 13:53 Amorphous Sediment Not Reportable 12/26/22 13:53 Urine Bacteria Trace /hpf (NONE) 12/26/22 13:53 A&P Assessment and plan (1) Syncope: in view of the abnormal perfusion scan, possibility of coronary ischemia/arrhythmia causing the syncopal episode is a strong consideration. (2) Atherosclerosis of coronary artery of [place] heart without angina pectoris: Patient has severe three-vessel coronary artery disease. Occluded venous graft to the RCA and circumflex marginals. Patent SINGH to the LAD. The most of the coronary circulation is through the left anterior descending artery. Discussed with the patient about the abnormal Myocardial perfusion imaging. For further evaluation of his coronary status as well as the Status, he requires a cardiac catheterization. The risk of bleeding, hematoma, vascular injury, myocardial infarction, myocardial perforation, malignant cardiac arrhythmias ,CVA, renal failure and other concomitant complications were explained in detail. Patient understood this well and consented to proceed. We may go ahead and do schedule the procedure for this morning. (3) HTN (hypertension): The blood pressure seems to be under control. May continue on the current medications. (4) Hyperlipidemia: We will continue on the current medications. (5) Nicotine dependence, cigarettes, with other nicotine-induced disorders: Strongly advised to quit smoking. Plan Based on the results of the cardiac catheterization and the patient's clinical progress, further recommendations will be made. Attestations Medical Necessity Statement*: Defer to the primary Coding Level of Care Code 36026 Diagnoses Syncope R55 Atherosclerosis of coronary artery of [place] heart without angina pectoris I25.10 HTN (hypertension) I10 Hyperlipidemia E78.5 Nicotine dependence, cigarettes, with other nicotine-induced disorders F17.218
--- NOTE | 2022-12-28 06:59 | P.HPUD_ITS ---
Surgery/Procedure H&P Update DATE OF PROCEDURE: December 28, 2022 DATE H&P PERFORMED: 12/26/22 H&P UPDATE INFORMATION: I have reviewed H&P completed within last 30 days, I have examined patient prior to procedure and No changes to prior documentation PREOP DIAGNOSIS: Atherosclerotic heart disease PRIMARY INDICATION FOR PROCEDURE: Abnormal Myocardial perfusion imaging/syncope/history of coronary artery bypass surgery PLANNED PROCEDURE: Operation Date: 12/28/22 07:00 Proposed Procedures p Cardiac Catheterization(Left) - Roque Bowen MD PATIENT REASSESSED PRIOR TO SEDATION, WITH NO CHANGE NOTED: Yes PHYSICAL EXAM: alert, oriented x 3 and clear to auscultation bilaterally AIRWAY EVAL/ANESTHESIA PLAN: normal airway, see other exam findings, ASA III, Local Anesthesia, Risks, benefits & alternatives of sedation and/or procedure di scussed and Patient agrees to continue as planned
[2022-12-28] MEDS: docusate sodium 100 mg Capsule PO (08:21)
[2022-12-28] MEDS: atorvastatin 40 mg Tablet 80 MG PO (08:21)
[2022-12-28] MEDS: aspirin 81 mg EC Tablet PO (08:21)
[2022-12-28] MEDS: carvedilol 6.25 mg Tablet PO ×2 (08:21→21:17)
[2022-12-28] MEDS: clopidogrel 75 mg Tablet PO (08:21)
[2022-12-28] MEDS: diphenhydrAMINE 50 mg Capsule PO (08:22)
[2022-12-28] MEDS: sodium chloride 0.9% 1,000 ML 50 ML IV (08:22)
[2022-12-28] MEDS: pantoprazole DR 40 mg Tablet PO (08:23)
[2022-12-28] MEDS: potassium chloride ER 20 mEq Tablet PO (08:23)
--- NOTE | 2022-12-28 11:01 | PC.CHAP ---
Pastoral Care Encounter/Spiritual Assessment Type of Contact [] Declined information technology instructor visit [] Patient/Family/Request visit [] Outpatient visit [] Follow-up visit [] Physician referral [] Code/Alert [x] Routine visit [] Staff referral [] Actively dying [] Patient sleeping [] Family support [] [x] Out of room [] Palliative care [] [] Receiving care in room [] Pre-surgical visit [] Trauma [] Long length of stay [] ICU visit [] Other: Relational/Emotional Strength [] Patient feels connected with others/family/visitors/staff [] Distress [] Loneliness/isolation [] Abandonment Spirituality of Patient [] Person of Joanna [] Attends Druze of their Joanna [] Believes in Prayer [] Reads Bible or Faith materials [] There are Spiritual issues to be addressed Grain Elevator Worker Interventions [] Prayer [] Active listening [] Non-anxious presence [] Spiritual/emotional support [] Crisis/trauma care [] Spiritual counseling [] Bereavement support [] Provided bereavement packet [] Provided Bible/devotional materials [] Provided toy/stuffed animal, coloring book to patient or family member [] Provided Communion [] Anointing/Center [] Salvation [] Completed spiritual assessment [] Other: Impact on Illness or Injury [] Angry [] Fearful [] Anxious [] Often cries [] Exhaustion [] Unable to work [] Unable to attend yazidi [] Unable to walk/stand [] Unable to read [] Unable to drive [] Unable to eat/drink [] Unable to sleep [] Unable to be with family [] Patient intubated [] Other: Summary went back 2 times Patient out of room for treatment Time spent with patient 0
[2022-12-28] MEDS: acetaminophen 325 mg Tablet 650 MG PO (13:27)
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
[2022-12-28 16:56] LABS: Partial Thromboplastin Time 42.6 SECONDS (23.9-36.7)
[2022-12-29] VITALS (8 sets, daily range): BP systolic 114–144; BP diastolic 65–71; PULSE 64–71; RESP 16–17; TEMP 36.9; O2SAT 92–96
[2022-12-29] MEDS: enoxaparin 120 mg/0.8 mL Syringe SUBCUT (06:19)
[2022-12-29] MEDS: acetaminophen 325 mg Tablet 650 MG PO (08:19)
[2022-12-29] MEDS: pantoprazole DR 40 mg Tablet PO (08:19)
[2022-12-29] MEDS: potassium chloride ER 20 mEq Tablet PO (08:19)
[2022-12-29] MEDS: atorvastatin 40 mg Tablet 80 MG PO (08:19)
[2022-12-29] MEDS: docusate sodium 100 mg Capsule PO (08:19)
[2022-12-29] MEDS: carvedilol 6.25 mg Tablet PO (08:19)
[2022-12-29] MEDS: clopidogrel 75 mg Tablet PO (08:19)
[2022-12-29] MEDS: aspirin 81 mg EC Tablet PO (08:19)
[2022-12-29] MEDS: cetirizine 10 mg Tablet PO (09:27)
--- NOTE | 2022-12-29 09:35 | P.PN_ITS ---
Subjective Subjective: Patient has not had any chest pain or palpitations. No significant arrhythmias on the monitor. No syncopal episodes. Had the cardiac catheterization yesterday. Was found to have a high-grade lesion in the mid circumflex and Significant lesion in the ostium of the left main. He underwent PCI of these lesions. Medications: Medication Review Details: Current Medications Acetaminophen (Acetaminophen 325 Mg Tablet) 650 mg PO Q6H PRN PRN Reason: Mild/Mod Pain Or Temp >/= 101 Last Admin: 12/29/22 08:19 Dose: 650 mg Albuterol/Ipratropium (Ipratropium-Albuterol 3 Ml Neb) 3 ml INHALATION Q6H PRN PRN Reason: SHORTNESS OF BREATH Aspirin (Aspirin 81 Mg Ec Tablet) 81 mg PO DAILY [facility] Last Admin: 12/29/22 08:19 Dose: 81 mg Atorvastatin Calcium (Atorvastatin 40 Mg Tablet) 80 mg PO DAILY [facility] Last Admin: 12/29/22 08:19 Dose: 80 mg Bisacodyl (Bisacodyl 5 Mg Tablet) 10 mg PO DAILY PRN; Protocol PRN Reason: Constipation (see protocol) Carvedilol (Carvedilol 6.25 Mg Tablet) 6.25 mg PO BID@0900,2100 [facility] Last Admin: 12/29/22 08:19 Dose: 6.25 mg Cetirizine HCl (Cetirizine 10 Mg Tablet) 10 mg PO DAILY [facility] Last Admin: 12/29/22 09:27 Dose: 10 mg Clopidogrel Bisulfate (Clopidogrel 75 Mg Tablet) 75 mg PO DAILY [facility] Last Admin: 12/29/22 08:19 Dose: 75 mg Docusate Sodium (Docusate Sodium 100 Mg Capsule) 100 mg PO BID [facility] Last Admin: 12/29/22 08:19 Dose: 100 mg Enoxaparin Sodium (Enoxaparin 120 Mg/0.8 Ml Syringe) 120 mg SUBCUT Q12H [facility] Last Admin: 12/29/22 06:19 Dose: 120 mg Nicotine (Nicotine 7 Mg Patch) 1 patch TRANSDERMA DAILY PRN PRN Reason: NICOTINE WITHDRAWAL Nicotine Polacrilex (Nicotine 2 Mg Gum) 2 mg BUCCAL Q2H PRN PRN Reason: nicotine withdrawal if want gum Ondansetron HCl (Ondansetron 2 Mg/Ml Sdv 2 Ml) 4 mg IVP Q8H PRN PRN Reason: vomiting, or N/V if npo Ondansetron HCl (Ondansetron 2 Mg/Ml Sdv 2 Ml) 4 mg IVP Q2M PRN PRN Reason: NAUSEA Pantoprazole Sodium (Pantoprazole Dr 40 Mg Tablet) 40 mg PO DAILY [facility] Last Admin: 12/29/22 08:19 Dose: 40 mg Potassium Chloride (Potassium Chloride Er 20 Meq Tablet) 20 meq PO DAILY [facility] Last Admin: 12/29/22 08:19 Dose: 20 meq Vitals/I&O/Wt Last Vital Signs Temp 98.4 F 12/29/22 04:00 Pulse 64 12/29/22 08:02 Resp 17 12/29/22 08:02 BP 114/65 12/29/22 08:02 Pulse Ox 96 12/29/22 08:02 O2 Del Method Room Air 12/29/22 08:00 12/28/22 12/29/22 12/29/22 22:59 06:59 14:59 Intake Total 290 / 290 1400 / 1690 120 / 120 Output Total 225 / 225 200 / 425 Balance 65 / 65 1200 / 1265 120 / 120 Weight last 48 hrs Weight 268 lb 3.2 oz Weight 275 lb 1 oz Physical Exam Narrative: GENERAL: The patient is alert and oriented times three. Not in any acute distress. HEENT: No significant pallor, icterus or lymphadenopathy.Oral cavity: There are no mucous membrane lesions. NECK: Trachea appears to be central. No masses noted. No JVD or thyromegaly appreciated. RESPIRATORY: Chest is symmetrical. No intercostals muscle retraction or any accessory muscle activation. There is no chest wall tenderness. Breath sounds are heard bilaterally. No rales or rhonchi heard. No evidence of any consolidation. BREASTS: Deferred. HEART: The heart sounds are normal. No S3 or S4. No significant murmurs. No pericardial rub ABDOMEN: No vessel pulsations or distention. No tenderness. No organomegaly appreciated. Bowel sounds are normally heard. : Deferred. RECTAL: Deferred. LYMPHATIC: No lymphadenopathy noted in the neck. EXTREMITIES: Right groin has no hematoma or bleeding MUSCULOSKELETAL: No acute joint deformities or swelling SKIN: There are no significant rashes or ecchymosis NEUROPSYCHIATRIC: The patient is alert and oriented x3. Appears to be in a good mood. No tremors or rigidity noted. Data 12/27/22 04:05 12/27/22 04:05 Other Labs: Laboratory Last Values WBC 12.39 10^3/uL (3.29-11.43) H 12/27/22 04:05 RBC 5.11 10^6/uL (3.85-5.65) 12/27/22 04:05 Hgb 14.90 g/dL (11.27-16.99) 12/27/22 04:05 Hct 44.5 % (37-53) 12/27/22 04:05 MCV 87.1 fl (82-101) 12/27/22 04:05 MCH 29.2 pg (27-33) 12/27/22 04:05 MCHC 33.5 g/dL (30-55) 12/27/22 04:05 RDW 13.4 % (12.1-15.1) 12/27/22 04:05 Plt Count 154 10^3/cmm (157-399) L 12/27/22 04:05 MPV 9.1 fL (7.4-10.4) 12/27/22 04:05 Neut % (Auto) 71.9 % 12/27/22 04:05 Lymph % (Auto) 18.6 % 12/27/22 04:05 [place] % (Auto) 6.3 % 12/27/22 04:05 Eos % (Auto) 2.3 % 12/27/22 04:05 Baso % (Auto) 0.2 % 12/27/22 04:05 Neut # (Auto) 8.90 10^3/uL (1.8-7.7) H 12/27/22 04:05 Lymph # (Auto) 2.3 10^3/uL (0.8-4.8) 12/27/22 04:05 Nash # (Auto) 0.8 10^3/uL (0.2-0.9) 12/27/22 04:05 Eos # (Auto) 0.3 10^3/uL (0.0-0.8) 12/27/22 04:05 Baso # (Auto) 0.0 10^3/uL (0.0-0.1) 12/27/22 04:05 Nucleated RBC % (auto) 0 % 12/27/22 04:05 Nucleated RBCs # 0.0 /100WBC 12/27/22 04:05 PT 14.70 SECONDS (12.1-14.9) 12/27/22 04:05 INR 1.11 (0.8-1.2) 12/27/22 04:05 APTT 42.6 SECONDS (23.9-36.7) H D 12/28/22 16:22 D-Dimer 6.74 ug/mLFEU (0-0.59) H 12/26/22 15:55 Specimen Type Arterial 12/26/22 17:42 Sample Site Radial, left 12/26/22 17:42 ABG pH 7.47 (7.35-7.45) H 12/26/22 17:42 ABG pCO2 39.9 mmHg (35-45) 12/26/22 17:42 ABG pO2 59.2 mmHg (80.0-100.0) L 12/26/22 17:42 ABG HCO3 28.7 mmol/L (22-26) H 12/26/22 17:42 ABG O2 Saturation 93.2 12/26/22 17:42 ABG Base Excess 4.5 mmol/L (-2.0-2.0) H 12/26/22 17:42 [place] Test Pos 12/26/22 17:42 A-a O2 Gradient 5.4 mmHg (5-10) 12/26/22 17:42 Hematocrit 47.8 % (42-52) 12/26/22 17:42 Hgb O2 Saturation 91.2 % (95-100) L 12/26/22 17:42 Carboxyhemoglobin 2.0 %THgb (0.4-20.1) 12/26/22 17:42 Methemoglobin 0.1 % (0.4-1.5) L 12/26/22 17:42 Total Hemoglobin 15.6 g/dL (14-18) 12/26/22 17:42 Sodium 140.0 mmol/L (131-143) 12/26/22 17:42 Potassium 3.7 mmol/L (3.5-5.0) 12/26/22 17:42 Glucose 128.0 mg/dL (70-115) H 12/26/22 17:42 Ionized Calcium 1.3 mmol/L (1.1-1.4) 12/26/22 17:42 O2 Delivery Device Room air 12/26/22 17:42 Developmental Writing Instructor ID Gd 12/26/22 17:42 Sodium 140 mmol/L (136-145) 12/27/22 04:05 Potassium 4.0 mmol/L (3.5-5.1) 12/27/22 04:05 Chloride 103 mmol/L (98-107) 12/27/22 04:05 Carbon Dioxide 28 mmol/L (22-29) 12/27/22 04:05 Anion Gap 13.0 (5-19) 12/27/22 04:05 BUN 28 mg/dL (8-23) H 12/27/22 04:05 Creatinine 0.8 mg/dL (0.7-1.2) 12/27/22 04:05 GFR Calculation 96.7 mL/min (90-130) 12/27/22 04:05 Glucose 115 mg/dL (65-115) 12/27/22 04:05 Estimat Average Glucose 131 12/27/22 04:05 Hemoglobin A1c 6.2 % (4.0-6.0) H 12/27/22 04:05 Calculated Osmolality 296 mOsm/kg (285-295) H 12/27/22 04:05 Calcium 8.8 mg/dL (8.5-10.5) 12/27/22 04:05 Phosphorus 3.7 mg/dL (2.5-4.5) 12/27/22 04:05 Magnesium 1.6 mg/dL (1.7-2.3) L 12/27/22 04:05 Total Bilirubin 0.7 mg/dL (0.15-1.2) 12/26/22 09:55 AST 39 U/L (0-40) 12/26/22 09:55 ALT 52 U/L (0-41) H 12/26/22 09:55 Alkaline Phosphatase 119 U/L (40-130) 12/26/22 09:55 Troponin T Baseline 107 ng/L (0-15) H* 12/26/22 09:55 Troponin T 120 Minute 89.49 ng/L (0-15) H 12/26/22 12:04 Delta Troponin T -17.51 ABS# (0-10) L 12/26/22 12:04 Troponin T Hi Sens 6Hr 73.10 ng/L (0-15) H 12/26/22 15:55 Troponin T Hi Sens 6Hr Delta -33.90 ng/L (0-12) L 12/26/22 15:55 Total Protein 7.3 g/dL (6.6-8.7) 12/26/22 09:55 Albumin 4.0 g/dL (3.5-5.2) 12/26/22 09:55 Globulin 3.3 g/dL (1.3-4.6) 12/26/22 09:55 Triglycerides 122 mg/dL (0-150) 12/27/22 04:05 Cholesterol 119 mg/dL (0-200) 12/27/22 04:05 LDL Cholesterol, Calc 65 mg/dL (50-129) 12/27/22 04:05 HDL Cholesterol 30 mg/dL (60-100) L 12/27/22 04:05 LDL/HDL Ratio 2.17 RATIO (0.00-3.22) 12/27/22 04:05 Cholesterol/HDL Ratio 3.97 mg/dL (1.0-5.00) 12/27/22 04:05 Lipase 32 U/L (13-60) 12/26/22 09:55 Procalcitonin 0.08 ng/mL (0-0.5) 12/26/22 09:55 TSH 1.03 uIU/mL (0.27-4.20) 12/27/22 04:05 Urine Color Yellow (Yellow) 12/26/22 13:53 Urine Appearance Clear (CLEAR) 12/26/22 13:53 Urine pH 6.5 (5-7) 12/26/22 13:53 Ur Specific [place] 1.000 (1.005-1.030) L 12/26/22 13:53 Urine Protein Trace (Negative) 12/26/22 13:53 Urine Glucose (UA) Norm (Normal) 12/26/22 13:53 Urine Ketones Negative (Negative) 12/26/22 13:53 Urine Blood Neg (Negative) 12/26/22 13:53 Urine Nitrate Negative (Negative) 12/26/22 13:53 Urine Bilirubin Neg (Negative) 12/26/22 13:53 Urine Urobilinogen Norm mg/dL (Negative) 12/26/22 13:53 Ur Leukocyte Esterase Negative (Negative) 12/26/22 13:53 Urine RBC None /hpf (0-2) 12/26/22 13:53 Urine WBC 0-4 /hpf (0-5) H 12/26/22 13:53 Ur Squamous Epith Cells 0-4 /hpf (0-5) H 12/26/22 13:53 Amorphous Sediment Not Reportable 12/26/22 13:53 Urine Bacteria Trace /hpf (NONE) 12/26/22 13:53 A&P Assessment and plan (1) Atherosclerosis of coronary artery of [place] heart without angina pectoris: Patient is status post PCI of the circumflex artery/left main lesions. Currently remaining stable. No recurrence of syncope or chest pain. May continue on the current medications. (2) Syncope: Patient may be discharged home with an event monitor to evaluate for any spontaneous arrhythmia. (3) HTN (hypertension): The blood pressure seems to be under control. May continue on the current medications. (4) Hyperlipidemia: We will continue on the current medications. (5) Nicotine dependence, cigarettes, with other nicotine-induced disorders: Strongly advised to quit smoking. Plan If the patient continues remain stable, may be discharged home today. Patient will be seen at [facility] 1 week by the nurse practitioner Patient will be seen by Dr. Brock in 4 weeks in the office. Patient is advised to continue the medications as mentioned above. The importance of compliance to diet, medications and exercise were discussed. In the event of the patient developing chest pain ,unusual palpitations or any n ew symptoms, is advised to contact me or come to the hospital. Attestations Medical Necessity Statement*: Possible discharge home today Coding Level of Care Code 24399 Diagnoses Atherosclerosis of coronary artery of [place] heart without angina pectoris I25.10 Syncope R55 HTN (hypertension) I10 Hyperlipidemia E78.5 Nicotine dependence, cigarettes, with other nicotine-induced disorders F17.218
--- NOTE | 2022-12-29 09:54 | PC.CHAP ---
Pastoral Care Encounter/Spiritual Assessment Type of Contact [] Declined financial sales advisor visit [] Patient/Family/Request visit [] Outpatient visit [] Follow-up visit [] Physician referral [] Code/Alert [x] Routine visit [] Staff referral [] Actively dying [] Patient sleeping [] Family support [] [] Out of room [] Palliative care [] [x] Receiving care in room [] Pre-surgical visit [] Trauma [] Long length of stay [] ICU visit [] Other: Relational/Emotional Strength [x] Patient feels connected with others/family/visitors/staff [] Distress [] Loneliness/isolation [] Abandonment Spirituality of Patient [x] Person of Joanna [] Attends Gnosticist of their Joanna [x] Believes in Prayer [] Reads Bible or Episcopal materials [] There are Spiritual issues to be addressed Manufacturing Team Member Interventions [x] Prayer [x] Active listening [x] Non-anxious presence [x] Spiritual/emotional support [] Crisis/trauma care [x] Spiritual counseling [] Bereavement support [] Provided bereavement packet [] Provided Bible/devotional materials [] Provided toy/stuffed animal, coloring book to patient or family member [] Provided Communion [] Anointing/[place] [] Salvation [x] Completed spiritual assessment [] Other: Impact on Illness or Injury [] Angry [] Fearful [] Anxious [] Often cries [] Exhaustion [] Unable to work [] Unable to attend religion [] Unable to walk/stand [] Unable to read [] Unable to drive [] Unable to eat/drink [] Unable to sleep [] Unable to be with family [] Patient intubated [] Other: Summary blockage bloone stents feeling better has a good attitude well be ángel g home Time spent with patient 10 mins
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
--- NOTE | 2022-12-29 12:50 | PC.NURSE ---
Discharge Note Patient discharged to [home] via [w/c to POV] accompanied by []. Discharge instructions reviewed with patient and/or technology sales representative. Mobile pharmacy medications and/or prescriptions provided. Belongings/home medications returned.
== END 2022-12-29 12:50 | disposition home or self-care (01) ==
LOC: ER 09:45 → CSU 14:43
PROVIDERS: Internal Medicine; Internal Medicine Cardiovascular Disease; Admitting Provider Hospitalist; Emergency Provider Family Medicine; PCP Nurse Practitioner Family; Visit Provider Internal Medicine
DX: I25.10 Atherosclerotic heart disease of native coronary artery without angina pectoris (principal); I25.82 Chronic total occlusion of coronary artery; I11.9 Hypertensive heart disease without heart failure; R55 Syncope and collapse; E78.5 Hyperlipidemia, unspecified; F17.218 Nicotine dependence, cigarettes, with other nicotine-induced disorders; Z95.5 Presence of coronary angioplasty implant and graft; Z86.16 Personal history of COVID-19; R77.8 Other specified abnormalities of plasma proteins; R00.1 Bradycardia, unspecified; Z95.1 Presence of aortocoronary bypass graft; I37.1 Nonrheumatic pulmonary valve insufficiency; M47.892 Other spondylosis, cervical region; M48.02 Spinal stenosis, cervical region; J43.8 Other emphysema; K44.0 Diaphragmatic hernia with obstruction, without gangrene; C61 Malignant neoplasm of prostate; S27.329A Contusion of lung, unspecified, initial encounter; M54.50 Low back pain, unspecified; V47.0XXA Car driver injured in collision with fixed or stationary object in nontraffic accident, initial encounter; Y93.9 Activity, unspecified; Y92.9 Unspecified place or not applicable; Y99.9 Unspecified external cause status; Z86.73 Personal history of transient ischemic attack (TIA), and cerebral infarction without residual deficits; Z79.02 Long term (current) use of antithrombotics/antiplatelets
CPT/HCPCS: 36415; 36600; 70450; 71045; 71260; 71275; 72125; 74177; 78452; 80048; 80051; 80053; 80061; 81001; 82330; 82805; 83036; 83690; 83735; 84100; 84145; 84443; 84484; 85025; 85347; 85378; 85610; 85730; 92978; 93005; 93017; 93458; 93880; 93970; 96365; 96372; 96375; 99152; 99153; 99285; A9270; A9500; C1725; C1753; C1769; C1874; C1887; C1894; C8929; C9600; C9601; G0378; J0280; J1644; J1650; J2250; J2785; J3010; J3480; J7030; Q0163; Q9956; Q9967

== ENCOUNTER 2023-01-01 06:00 | Outpatient (RCR) | payer OTHER, SELFPAY | END 2023-01-31 23:59 | disposition home or self-care (01) | LOC: SPT 06:00 | PROVIDERS: PCP Nurse Practitioner Family; Visit Provider Surgery Trauma Surgery | DX: C61 Malignant neoplasm of prostate (principal) | CPT/HCPCS: 97110; 97530 ==

== ENCOUNTER → 2023-01-10 13:20 | Outpatient (BNVA) | payer OTHER, SELFPAY | PROVIDERS: PCP Nurse Practitioner Family; Visit Provider Orthopaedic Surgery | DX: M51.37 Other intervertebral disc degeneration, lumbosacral region (principal); M81.0 Age-related osteoporosis without current pathological fracture; S32.049A Unspecified fracture of fourth lumbar vertebra, initial encounter for closed fracture; X58.XXXA Exposure to other specified factors, initial encounter | CPT/HCPCS: 72100 ==

== ENCOUNTER 2023-02-01 06:00 | Outpatient (RCR) | payer OTHER, SELFPAY | END 2023-02-28 12:15 | disposition home or self-care (01) | LOC: SPT 06:00 | PROVIDERS: PCP Nurse Practitioner Family; Visit Provider Surgery Trauma Surgery | DX: C61 Malignant neoplasm of prostate (principal) | CPT/HCPCS: 97530 ==

== ENCOUNTER → 2023-02-07 12:53 | Outpatient (BNVA) | payer OTHER, SELFPAY | PROVIDERS: PCP Nurse Practitioner Family; Visit Provider Orthopaedic Surgery | DX: M54.50 Low back pain, unspecified (principal); T14.8XXA Other injury of unspecified body region, initial encounter; X58.XXXA Exposure to other specified factors, initial encounter | CPT/HCPCS: 72100 ==

== ENCOUNTER 2023-03-07 16:00 | Outpatient (CLI) | payer OTHER, SELFPAY | END 2023-03-07 16:01 | disposition home or self-care (01) | LOC: SLEEP 03-08 16:56 | PROVIDERS: PCP Nurse Practitioner Family; Visit Provider Internal Medicine Cardiovascular Disease | DX: G47.33 Obstructive sleep apnea (adult) (pediatric) (principal); G47.36 Sleep related hypoventilation in conditions classified elsewhere; R06.00 Dyspnea, unspecified | CPT/HCPCS: G0399 ==

== ENCOUNTER 2023-05-31 08:34 | Outpatient (CLI) | payer OTHER, SELFPAY ==
--- NOTE | 2023-05-31 08:39 | CT_ITS ---
WS: [id number] LDCT LUNG CANCER SCREENING TECHNIQUE: Noncontrast CT of the chest with coronal and sagittal reformatted images. CLINICAL INFORMATION: HX OF TOBACCO USE/NICOTINE DEPENDENCE,CIGARETTES COMPARISON: CT 05/13/2022 DLP: 158.69 mGy.cm DIvol: Mean CTDIvol: 3.70 (mGy) All CT scans at [facility] use at least one of these dose optimization techniques: automat ed exposure control; mA and/or kV adjustment per patient size (includes targeted exams where dose is matched to clinical indication); or iterative reconstruction. FINDINGS: Mild chronic emphysematous changes. Few calcified granulomas. Subsegmental atelectasis in the lung ba ses. No suspicious pulmonary parenchymal abnormalities. Normal caliber thoracic aorta. Aortic calcification. Coronary calcification. Few prominent RIGHT para tracheal lymph nodes the largest measuring 1.7 cm unchanged over multiple prior studies likely reacti ve. Otherwise no mediastinal or hilar lymphadenopathy. Calcified hilar nodes. No axillary lymphadenopathy. Sternotomy with CABG. Adrenal glands are normal. Fatty atrophy of the pancreas. Partially visualized RIGHT renal cyst measuring 4.7 cm. Large esophage al hiatal hernia with intrathoracic stomach. Thoracic kyphosis with hypertrophic changes. Slight comp ression superior endplate of T2 likely chronic. IMPRESSION: CT/CT lung screening [id number] LUNG-RADS: 2-Benign Appearance or Behavior FOLLOW UP: 12 Month: Continue annual screening with LDCT
--- NOTE | 2023-05-31 08:39 | USCV_ITS ---
Adam Moncho Age: 68 Gender: M : 1955 Exam Date: 05/31/2023 08:45 Ordering Phys: Jossie Medina NP Technologist: JULIETTE Exam Location: [facility] – [place] Indication: SCREENING HISTORY: Diameter (cm) AP x Transverse x Length Velocity (cm/s) Waveform Prox Aorta: 1.60 x 1.90 x 70.00 Biphasic Mid Aorta: 1.90 x 1.90 x 68.00 Biphasic Distal Aorta: 1.90 x 1.80 x 68.00 Biphasic Right Iliac Prox: 1.40 x 1.60 x 63.00 Biphasic Left Iliac Prox: 1.00 x 1.20 x 59.00 Biphasic Stent Prox Landing x x Aneurysmal Sac Max x x Lt Lat Sac Dim Rt Lat Sac Dim Stent Dist Landing x x Right Iliac Stent x x Left Iliac Stent x x Right Renal Art Left Renal Art FINDINGS: Comparison: none available. The abdominal aorta could not be adequately visualized. Ectatic abdominal aorta with evidence of atherosclerotic plaque noted. No evidence of abdominal aortic aneurysm. CONCLUSIONS A complete assessment of the abdominal aorta was not possible. No evidence of abdominal aortic aneurysm. Dr. Maribel Gamino DO (Electronically Signed) Final Date: 31 May 2023 12:08 S
== END 2023-05-31 08:35 | disposition home or self-care (01) ==
LOC: RAD 08:34
PROVIDERS: PCP Nurse Practitioner Family; Visit Provider Nurse Practitioner Family
DX: Z12.2 Encounter for screening for malignant neoplasm of respiratory organs (principal); J43.9 Emphysema, unspecified; I10 Essential (primary) hypertension; I25.10 Atherosclerotic heart disease of native coronary artery without angina pectoris; F17.210 Nicotine dependence, cigarettes, uncomplicated
CPT/HCPCS: 71271; 76706

== ENCOUNTER 2023-06-08 21:16 | Emergency (ER) | payer OTHER, SELFPAY ==
[2023-06-08 21:20] VITALS: BP 101/62; PULSE 101; RESP 20; TEMP 36.6; O2SAT 96
--- NOTE | 2023-06-08 21:39 | XRR_ITS ---
PROCEDURE INFORMATION: Exam: XR Abdomen Exam date and time: 06/08/2023 9:55 PM Age: 68 years old Clinical indication: Abdominal pain; Prior surgery; Surgery date: 6+ months; Surgery type: Cabg. Prostate; Patient HX: C/O periumbilical pain. History of prostate cancer. ; Additional info: Abd pain TECHNIQUE: Imaging protocol: Radiologic exam of the abdomen. Views: Frontal supine view of the abdomen. 1 View. COMPARISON: CT chest abdpel w/*[id number] 12/26/2022 11:26 AM FINDINGS: Gastrointestinal tract: Multiple dilated loops of small bowel, concerning for small bowel ileus or obstruction. Bones/joints: No acute osseous abnormality. XR/XR abdomen 1V* [id number] IMPRESSION: Multiple dilated loops of small bowel, concerning for small bowel ileus or obstruction.
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
[2023-06-08 22:08] LABS: Basophils % 0.1 %; Eosinophils # 0.2 10^3/uL (0.0-0.8); Eosinophils % 2.2 %; Hematocrit 42.6 % (37-53); Lymphocytes # 1.1 10^3/uL (0.8-4.8); Mean Corpuscular HGB Conc 33.6 g/dL (30-55); Mean Corpuscular Hemoglobin 29.7 pg (27-33); Mean Corpuscular Volume 88.4 fl (82-101); Mean Platelet Volume 8.9 fL (7.4-10.4); Monocytes # 0.6 10^3/uL (0.2-0.9); Monocytes % 5.5 %; Neutrophils # 8.35 10^3/uL (1.8-7.7); Neutrophils % 80.9 %; Nucleated Red Blood Cells % 0 %; Platelet Count 175 10^3/cmm (157-399); Red Blood Count 4.82 10^6/uL (3.85-5.65); Red Cell Distribution Width 13.5 % (12.1-15.1); White Blood Count 10.33 10^3/uL (3.29-11.43)
[2023-06-08 22:25] VITALS: BP 104/58; PULSE 84; RESP 18; O2SAT 91
[2023-06-08 22:28] LABS: Alanine Aminotransferase 21 U/L (0-41); Albumin Level 3.6 g/dL (3.5-5.2); Alkaline Phosphatase 125 U/L (40-130); Anion Gap 15.1 (5-19); Aspartate Amino Transferase 21 U/L (0-40); Blood Urea Nitrogen 18 mg/dL (8-23); Calcium 8.9 mg/dL (8.5-10.5); Carbon Dioxide 28 mmol/L (22-29); Chloride 99 mmol/L (98-107); Globulin 3.2 g/dL (1.3-4.6); Glomerular Filtration Rate 84.2 mL/min (90-130); Glucose 128 mg/dL (65-115); Lipase 18 U/L (13-60); Osmolality Calculated 290 mOsm/kg (285-295); Potassium 4.1 mmol/L (3.5-5.1); Sodium 138 mmol/L (136-145); Total Protein 6.8 g/dL (6.6-8.7)
--- NOTE | 2023-06-08 22:28 | CTR_ITS ---
PROCEDURE INFORMATION: Exam: CT Abdomen And Pelvis With Contrast Exam date and time: 06/08/2023 10:38 PM Age: 68 years old Clinical indication: Abdominal pain; Prior surgery; Surgery date: 6+ months; Surgery type: Cabg. Prostate; Patient HX: C/O periumbilical pain. Known umbilical hernia. History of prostate cancer. ; Additional info: Abdominal pain, abnormal XR TECHNIQUE: Imaging protocol: Computed tomography of the abdomen and pelvis with contrast. Radiation optimization: All CT scans at this facility use at least one of these dose optimization techniques: automated exposure control; mA and/or kV adjustment per patient size (includes targeted exams where dose is matched to clinical indication); or iterative reconstruction. Contrast material: OMNI 350; Contrast volume: 100 ml; Contrast route: INTRAVENOUS (IV); COMPARISON: CT chest abdpel w/*[id number] 12/26/2022 11:26 AM RADIATION DOSE METRICS: Total DLP (mGy-cm): 1266.13 FINDINGS: Diaphragm: Large hiatal hernia. Liver: Liver is unremarkable. Gallbladder and bile ducts: No calcified gallstones. No gallbladder wall thickening or pericholecystic fluid. No biliary ductal dilation. Pancreas: Pancreatic atrophy. No main duct dilation. Spleen: Splenic granulomas, otherwise unremarkable. Adrenal glands: No adrenal nodules. Kidneys and ureters: Punctate nonobstructing calculus in the right kidney. Bilateral simple renal cysts. Stomach and bowel: There are a few loops of mildly dilated proximal small bowel in the left upper abdomen with air-fluid levels, upstream to a segment of segment of small bowel with wall thickening, series 3, image 65 and 71, as well as upstream to the periumbilical hernia containing loops of non dilated small bowel. Colonic diverticulosis without CT findings of acute diverticulitis. There is fluid in the cecum and ascending colon. Appendix: No evidence of appendicitis. Intraperitoneal space: Small amount of free fluid in the pelvis. No free air. Vasculature: Aortic atherosclerosis. No aortic aneurysm. Lymph nodes: No enlarged lymph nodes. Urinary bladder: Bladder is mostly decompressed and not well evaluated. Reproductive: Prostate not definitely visualized, may be surgically absent Bones/joints: No acute fracture. L4 superior endplate Schmorl's node. No lytic or blastic osseous lesions. Soft tissues: . Umbilical hernia containing nondilated loops of small bowel. CT/CT abdomen pelvis w con* [id number] IMPRESSION: There are few mildly dilated loops of proximal small bowel in the left upper abdomen, which could be related to ileus/enteritis given a downstream segment of small bowel with wall thickening, and/or component of mild partial obstruction given downstream small bowel containing periumbilical hernia, but there is no evidence to suggest high-grade small bowel obstruction. COMMENTS: Consistent with the [employer]'s Incidental Findings Committee white paper (J Am Jordan Radiol 2018): Any incidental renal lesion less than 1 cm or classified as too small to characterize, or any incidental cystic renal lesion characterized as simple-appearing, is likely benign. No follow-up imaging is recommended for these lesions per consensus recommendations based on imaging criteria.
[2023-06-08] MEDS: iohexol 350 mg/mL 500 mL Btl (per mL) IV (22:41)
[2023-06-08 23:00] VITALS: BP 118/76; PULSE 82; RESP 16; O2SAT 91
--- NOTE | 2023-06-08 23:13 | PC.NURSE ---
Assumed care of patient from Ronit cooley @ [phone]. Rounding with patient, Laying on bed, denies need for anything and his pain is not bad . Updated pt and family with tests that are still pending.
[2023-06-08 23:33] LABS: Total Bilirubin 0.6 mg/dL (0.15-1.2)
[2023-06-08 23:39] LABS: Add Urine Microscopic? YES; Bilirubin Urine Neg (Negative); Blood Urine Neg (Negative); Glucose Urine UA Norm (Normal); Ketones Urine Negative (Negative); Leukocyte Esterase Urine Negative (Negative); Nitrate Urine Negative (Negative); Protein Urine Trace (Negative); Specific Gravity, Urine 1.005 (1.005-1.030); Urine Appearance Clear (CLEAR); Urine Color Yellow (Yellow); Urobilinogen Urine Neg (Negative); pH Urine 5 (5-7)
[2023-06-08 23:40] LABS: Add Urine Culture? No; Bacteria Urine TRACE /hpf; Mucus Urine 2+ /hpf; WBC Urine 0-4 /hpf (0-5)
[2023-06-09 00:08] VITALS: BP 113/84; PULSE 79; RESP 18; O2SAT 95
== END 2023-06-09 00:10 | disposition home or self-care (01) ==
PROVIDERS: Emergency Provider Emergency Medicine; PCP Nurse Practitioner Family
DX: K56.7 Ileus, unspecified (principal); Z79.02 Long term (current) use of antithrombotics/antiplatelets; Z79.82 Long term (current) use of aspirin; F17.210 Nicotine dependence, cigarettes, uncomplicated; I25.10 Atherosclerotic heart disease of native coronary artery without angina pectoris; Z85.46 Personal history of malignant neoplasm of prostate; Z86.73 Personal history of transient ischemic attack (TIA), and cerebral infarction without residual deficits; E78.5 Hyperlipidemia, unspecified; I10 Essential (primary) hypertension; Z95.1 Presence of aortocoronary bypass graft
CPT/HCPCS: 36415; 74018; 74177; 80053; 81001; 83690; 85025; 99285; Q9967

== ENCOUNTER 2024-01-31 22:33 | Emergency (ER) | payer OTHER, SELFPAY ==
[2024-01-31 22:45] VITALS: BP 108/62; PULSE 91; RESP 18; TEMP 36.7; O2SAT 97; BMI 34.4
--- NOTE | 2024-01-31 22:58 | XRR_ITS ---
PROCEDURE INFORMATION: Exam: XR Abdomen Exam date and time: 01/31/2024 11:29 PM Age: 69 years old Clinical indication: Abdominal pain; Localized; Other: Mid to lower abd; Prior surgery; Surgery date: 6+ months; Surgery type: Hernia 10/2022. Stents 2003, 12/2022. Cabg 1995 TECHNIQUE: Imaging protocol: Radiologic exam of the abdomen. Views: 2 Views. Upright and supine views. COMPARISON: CR (ABDOMEN, ) 06/08/2023 9:55 PM FINDINGS: Lungs: Mild left basilar atelectasis. No pulmonary consolidation. Calcified granuloma in the right lateral lung zone. Pleural spaces: No pleural effusion or pneumothorax. Heart/Mediastinum: Heart size is within normal limits. Diaphragm: Moderate elevation of the left hemidiaphragm. Gastrointestinal tract: Multiple mildly dilated gas-filled segments of small bowel measuring up to 4.6 cm which could be seen in ileus or small bowel obstruction. Gas is seen in the colon. Intraperitoneal space: Normal. No free air. Vasculature: Atherosclerotic calcifications of the aorta are noted. Bones/joints: No acute osseous abnormalities are seen. XR/XR acute abdomen series [id number] IMPRESSION: Multiple mildly dilated gas-filled segments of small bowel measuring up to 4.6 cm which could be seen in ileus or small bowel obstruction. Recommend CT if indicated.
[2024-01-31 23:29] LABS: Basophils % 0.2 %; Eosinophils # 0.2 10^3/uL (0.0-0.8); Eosinophils % 1.8 %; Hematocrit 44.2 % (37-53); Lymphocytes % 9.3 %; Mean Corpuscular HGB Conc 33.5 g/dL (30-55); Mean Corpuscular Hemoglobin 29.2 pg (27-33); Mean Corpuscular Volume 87.4 fl (82-101); Mean Platelet Volume 8.9 fL (7.4-10.4); Monocytes # 0.9 10^3/uL (0.2-0.9); Monocytes % 8.4 %; Neutrophils # 8.31 10^3/uL (1.8-7.7); Neutrophils % 79.8 %; Nucleated Red Blood Cells % 0 %; Platelet Count 178 10^3/cmm (157-399); Red Blood Count 5.06 10^6/uL (3.85-5.65); Red Cell Distribution Width 13.7 % (12.1-15.1); White Blood Count 10.41 10^3/uL (3.29-11.43)
[2024-01-31 23:45] LABS: Alanine Aminotransferase 33 U/L (0-41); Albumin Level 4.1 g/dL (3.5-5.2); Alkaline Phosphatase 133 U/L (40-130); Aspartate Amino Transferase 29 U/L (0-40); Blood Urea Nitrogen 26 mg/dL (8-23); Carbon Dioxide 27 mmol/L (22-29); Chloride 99 mmol/L (98-107); Creatinine Clr Calc Pharmacy 77.1437; Globulin 3.1 g/dL (1.3-4.6); Glomerular Filtration Rate 60.2 mL/min (90-130); Glucose 121 mg/dL (65-115); Lipase 25 U/L (13-60); Osmolality Calculated 288 mOsm/kg (285-295); Sodium 136 mmol/L (136-145); Total Bilirubin 0.7 mg/dL (0.15-1.2); Total Protein 7.2 g/dL (6.6-8.7)
[2024-01-31 23:46] LABS: Lactic Sepsis W/Reflex 1.4 mmol/L (0.5-2.2)
[2024-02-01] VITALS (8 sets, daily range): BP systolic 112–156; BP diastolic 63–88; PULSE 68–92; O2SAT 93–97
--- NOTE | 2024-02-01 00:04 | CTR_ITS ---
PROCEDURE INFORMATION: Exam: CT Abdomen And Pelvis With Contrast Exam date and time: 02/01/2024 12:18 AM Age: 69 years old Clinical indication: Abdominal pain; Prior surgery; Surgery date: 6+ months; Surgery type: Hernia repair, stents TECHNIQUE: Imaging protocol: Computed tomography of the abdomen and pelvis with contrast. Radiation optimization: All CT scans at this facility use at least one of these dose optimization techniques: automated exposure control; mA and/or kV adjustment per patient size (includes targeted exams where dose is matched to clinical indication); or iterative reconstruction. Contrast material: OMNI 350; Contrast volume: 100 ml; Contrast route: INTRAVENOUS (IV); COMPARISON: CT abdomen pelvis w con* [id number] 06/08/2023 10:38 PM RADIATION DOSE METRICS: Total DLP (mGy-cm): 1232.13 FINDINGS: Lungs: Stable moderate left posterior scarring atelectasis Heart: Heart size is within normal limits. There is no pericardial effusion or pericardial thickening. Liver: The liver is normal. No hepatic masses are identified. Gallbladder and biliary ducts: The gallbladder is normal. There is no ductal dilatation. Pancreas: The pancreas is normal. Spleen: Calcified splenic granulomata are noted. The spleen is otherwise normal. Adrenal glands: The adrenal glands are normal. Kidneys and ureters: There is normal enhancement of the kidneys. 2 mm nonobstructing right, stable. No other renal calcifications. There is no hydronephrosis. Bilateral renal cysts. There are bilateral subcentimeter renal low-density lesions which are too small for accurate characterization, likely representing simple cysts. Stomach and bowel: Stable large hiatal hernia containing stomach. Appendix: A normal appendix is identified. Intraperitoneal space: No inflammatory changes are identified. There is no free fluid or fluid collection seen. There is no pneumoperitoneum. Vasculature: Atherosclerotic calcifications of the aorta are present. No aneurysm is identified. Lymph nodes: No enlarged lymph nodes are identified. Urinary bladder: The bladder is unremarkable. Reproductive: The prostate is grossly unremarkable. Bones/joints: No acute osseous abnormalities are seen. Stable central height loss of L4. Soft tissues: Large wide-mouth periumbilical hernia containing multiple segments of small bowel. Appearance is similar prior study there is mildly dilated proximal without obstruction. Small bilateral inguinal hernias containing only fat are present. CT/CT abdomen pelvis w con* [id number] IMPRESSION: 1. Large wide-mouth periumbilical hernia continues to increase in size over time contains increased number segments of small bowel. Bowel-gas pattern is similar compared to prior study there are several segments of small without definitive evidence of high-grade obstruction. Consider small bowel follow-through as indicated. 2. Other nonemergent findings above. COMMENTS: Consistent with the [employer]'s Incidental Findings Committee white paper (J Am Jordan Radiol 2018): Any incidental renal lesion less than 1 cm or classified as too small to characterize, or any incidental cystic renal lesion characterized as simple-appearing, is likely benign. No follow-up imaging is recommended for these lesions per consensus recommendations based on imaging criteria.
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
[2024-02-01] MEDS: iohexol 350 mg/mL 500 mL Btl (per mL) IV (00:23)
[2024-02-01 01:37] LABS: Bilirubin Urine Negative (Negative); Blood Urine Negative (Negative); Glucose Urine UA Negative (Normal); Ketones Urine Negative (Negative); Leukocyte Esterase Urine Negative (Negative); Nitrate Urine Negative (Negative); Protein Urine Negative (Negative); Urine Appearance Clear (CLEAR); Urine Color Yellow (Yellow); pH Urine 5.5 (5-7)
[2024-02-01 01:50] LABS: Specific Gravity, Urine 1.049 (1.005-1.030)
[2024-02-01] MEDS: sodium chloride 0.9% 1,000 ML 999 ML IV (02:10)
== END 2024-02-01 03:30 | disposition home or self-care (01) ==
PROVIDERS: Emergency Provider Emergency Medicine; PCP Nurse Practitioner Family
DX: K42.9 Umbilical hernia without obstruction or gangrene (principal); R11.10 Vomiting, unspecified; Z79.02 Long term (current) use of antithrombotics/antiplatelets; Z79.82 Long term (current) use of aspirin; I25.10 Atherosclerotic heart disease of native coronary artery without angina pectoris; C61 Malignant neoplasm of prostate; Z86.73 Personal history of transient ischemic attack (TIA), and cerebral infarction without residual deficits; Z72.0 Tobacco use; I10 Essential (primary) hypertension
CPT/HCPCS: 36415; 74022; 74177; 80053; 81001; 83605; 83690; 85025; 99285; J7030

== ENCOUNTER 2024-02-15 15:14 | Emergency (ER) | payer OTHER, SELFPAY ==
[2024-02-15 15:41] VITALS: BP 96/63; PULSE 73; RESP 18; TEMP 36.5; O2SAT 99; BMI 34.5
[2024-02-15 16:31] LABS: Basophils % 0.2 %; Eosinophils % 0.3 %; Hematocrit 43.8 % (37-53); Lymphocytes # 0.8 10^3/uL (0.8-4.8); Lymphocytes % 6.8 %; Mean Corpuscular HGB Conc 33.3 g/dL (30-55); Mean Corpuscular Hemoglobin 29.8 pg (27-33); Mean Corpuscular Volume 89.4 fl (82-101); Mean Platelet Volume 8.7 fL (7.4-10.4); Monocytes # 0.5 10^3/uL (0.2-0.9); Monocytes % 4.4 %; Neutrophils # 9.79 10^3/uL (1.8-7.7); Neutrophils % 87.8 %; Nucleated Red Blood Cells % 0 %; Platelet Count 165 10^3/cmm (157-399); Red Cell Distribution Width 14.3 % (12.1-15.1); White Blood Count 11.15 10^3/uL (3.29-11.43)
[2024-02-15 16:52] LABS: Alanine Aminotransferase 41 U/L (0-41); Alkaline Phosphatase 126 U/L (40-130); Aspartate Amino Transferase 36 U/L (0-40); Blood Urea Nitrogen 22 mg/dL (8-23); Calcium 8.7 mg/dL (8.5-10.5); Carbon Dioxide 26 mmol/L (22-29); Chloride 102 mmol/L (98-107); Creatinine Clr Calc Pharmacy 103.1404; Globulin 2.8 g/dL (1.3-4.6); Glomerular Filtration Rate 83.9 mL/min (90-130); Glucose 153 mg/dL (65-115); Lipase 25 U/L (13-60); Osmolality Calculated 294 mOsm/kg (285-295); Sodium 139 mmol/L (136-145); Total Bilirubin 0.5 mg/dL (0.15-1.2); Total Protein 6.8 g/dL (6.6-8.7)
[2024-02-15 18:00] VITALS: BP 135/67; PULSE 77; O2SAT 97
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
--- NOTE | 2024-02-15 18:16 | ECG_ITS ---
[facility] 2024[facility]15 Pat Name: Moncho Medina Department: Room: Gender: Male Surveyor: : 1955 Requested By: Carrie Leung Order Number: [id number] Markie MD: Roque Bowen M.D. 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 [email or web address]
--- NOTE | 2024-02-15 18:16 | XRR_ITS ---
PROCEDURE INFORMATION: Exam: XR Chest Exam date and time: 02/15/2024 6:35 PM Age: 69 years old Clinical indication: Pain; Chest pressure; Prior surgery; Surgery date: 6+ months; Surgery type: Cabg; Additional info: Chest pain TECHNIQUE: Imaging protocol: Radiologic exam of the chest. Views: 1 view. COMPARISON: CT lung screening [id number] 05/31/2023 9:09 AM FINDINGS: Lungs: No focal consolidation. Pleural spaces: Unremarkable. No pleural effusion. No pneumothorax. Heart/Mediastinum: Unremarkable. No cardiomegaly. Bones/joints: Prior median sternotomy and CABG. XR/XR chest 1V portable [id number] IMPRESSION: No focal consolidation.
[2024-02-15 18:30] VITALS: BP 117/74; PULSE 75; O2SAT 97
[2024-02-15 18:48] LABS: Bilirubin Urine Negative (Negative); Blood Urine Negative (Negative); Glucose Urine UA Negative (Normal); Ketones Urine Negative (Negative); Leukocyte Esterase Urine Negative (Negative); Nitrate Urine Negative (Negative); Protein Urine 1+ (Negative); Urine Appearance Clear (CLEAR); Urine Color Dark Yellow (Yellow)
[2024-02-15 18:51] LABS: Troponin(5th) Baseline 7 ng/L (0-15)
[2024-02-15 18:53] LABS: Add Urine Microscopic? YES; Bacteria Urine None Seen /hpf; Hyaline Casts Urine 11.16 /lpf; RBC Urine 0-2 /hpf (0-2); Squamous Epithelial Cell Urine 0-5 /hpf (0-5); WBC Urine 0-5 /hpf (0-5)
[2024-02-15 18:55] LABS: Troponin 5 2HR 7.11 ng/L (0-15); Troponin 5 2HR Delta 0.11 ABS# (0-10)
[2024-02-15 19:05] LABS: UA Slide Review UA Slide Review Perf
[2024-02-15 19:07] LABS: Add Urine Culture? No; Fine Granular Casts Urine 0-4 /lpf
[2024-02-15 19:10] VITALS: BP 140/76; PULSE 74; RESP 20; O2SAT 99
[2024-02-15 19:36] VITALS: BP 138/75; PULSE 85; RESP 16; O2SAT 96
[2024-02-15 19:37] VITALS: BP 138/75; PULSE 81; RESP 16; O2SAT 95
== END 2024-02-15 19:45 | disposition home or self-care (01) ==
PROVIDERS: Emergency Medicine; Emergency Provider Physician Assistant; PCP Nurse Practitioner Family
DX: K46.9 Unspecified abdominal hernia without obstruction or gangrene (principal)
CPT/HCPCS: 36415; 71045; 80053; 81001; 83690; 84484; 85025; 93005; 99285

== ENCOUNTER → 2024-05-19 15:54 | Outpatient (BNVA) | payer OTHER, SELFPAY | PROVIDERS: PCP Nurse Practitioner Family; Visit Provider Registered Nurse Neonatal Intensive Care | DX: J02.9 Acute pharyngitis, unspecified (principal); J06.9 Acute upper respiratory infection, unspecified | CPT/HCPCS: 87880 ==

== ENCOUNTER 2024-06-03 09:51 | Outpatient (CLI) | payer OTHER, SELFPAY ==
--- NOTE | 2024-06-03 09:56 | CT_ITS ---
WS: [id number] LDCT LUNG CANCER SCREENING HISTORY: NICOTINE DEPENDENCE, CIGARETTES TECHNIQUE: Axial imaging performed from the apices to 1 cm below the costophrenic angles. Coronal and sagittal reformats are submitted with axial MIP series. All CT scans at [facility] use at least one of these dose optimization techniques: automated exposure control; mA and/or kV adjustment per patient size (includes targeted exams where dose is matched to clinical indication); or iterative reconstruction. DLP: 113.70 mGy.cm DIvol: Mean CTDIvol: 2.60 (mGy) COMPARISON: 05/31/2023, 12/27/2022 Diagnostic quality: Satisfactory Lungs: Mild pulmonary hyperexpansion with paraseptal emphysema. There are a few scattered calcified granulomata which are benign. Chronic subsegmental atelectasis at the LEFT lung base. Thin linear scar at the RIGHT lung base. No noncalcified pulmonary nodule or mass. No pneumonia. No endobronchial lesions. Heart: Heart is normal size. Prior CABG.. Other findings: Small mediastinal lymph and hilar lymph nodes are reidentified. The largest lymph node high RIGHT paratracheal has been present on prior studies and measures 1.6 cm. There are additional smaller lymph nodes. These are probably reactive as they have been stable since 05/13/2022 mild atherosclerosis aorta. No aortic aneurysm. Normal size pulmonary artery. Large hiatal hernia. The stomach is intrathoracic with no obstruction. Similar to the prior study. Visualized liver is negative. Splenic granulomata. Negative RIGHT adrenal gland. The LEFT adrenal gland is not seen in its entirety. Incompletely visualized low- attenuation mass measures 3.7 cm from the upper pole RIGHT kidney has been p reviously described. Hounsfield units are low. Mild increase in thoracic kyphosis. CT/CT lung screening [id number] IMPRESSION: LUNG-RADS: 2-Benign Appearance or Behavior FOLLOW UP: 12 Month: Continue annual screening with LDCT OTHER FINDINGS (S MODIFIER): None.
== END 2024-06-03 09:52 | disposition home or self-care (01) ==
LOC: RAD 09:54
PROVIDERS: PCP Nurse Practitioner Family; Visit Provider Nurse Practitioner Family
DX: Z12.2 Encounter for screening for malignant neoplasm of respiratory organs (principal); F17.210 Nicotine dependence, cigarettes, uncomplicated; R91.8 Other nonspecific abnormal finding of lung field; J43.8 Other emphysema; J84.10 Pulmonary fibrosis, unspecified; J98.11 Atelectasis; J98.4 Other disorders of lung; Z98.890 Other specified postprocedural states; R59.0 Localized enlarged lymph nodes; I70.0 Atherosclerosis of aorta; K44.9 Diaphragmatic hernia without obstruction or gangrene; D73.89 Other diseases of spleen; N28.89 Other specified disorders of kidney and ureter; M40.294 Other kyphosis, thoracic region
CPT/HCPCS: 71271